=== PATIENT | female | born 1940 | race African-American/Black ===

== ENCOUNTER → 2016-07-06 | Outpatient (CLI) | payer MEDICARE, BC ==
[2016-03-31 10:36] VITALS: BP 109/61
[~2016-07-06] MED LIST: ALPR0.25 PO; AMLO2.5T2 PO; BUSP5TAB PO; CITA20TA9 PO; CYCL10TA2 PO; ESOM40CA PO; FENT1PAT17 TD; FURO-69 PO; GABA-586 PO; HYDR-2762 PO; HYDR30CR TP; LABE200T2 PO; MIRT15TA PO; NITR0.4T SL; ONDA4TAB10 PO; POTA10CA PO; PRAV80TA2 PO; PROAIR HFA8.5 GM IH; SENN8.6T99 PO; TRAZ50TA15 PO; ZOST1940 SQ
--- NOTE | 2016-07-06 12:24 | KCIC ---
PROCEDURE DEXA. HISTORY Postmenopausal screening. COMPARISON January 08, 2011. FINDINGS BMD: (g/cm2) - AP Spine Total (L1-L4): 0.986 - Total left Hip: 0.878 T-Score: - AP Spine Total (L1-L4): -0.6 - Total left Hip: -0.5 Z-Score: - AP Spine Total (L1-L4): 1.2 - Total left Hip: 0.3 Spine bone mineral density has decreased by 1.9 percent from prior. Left hip bone mineral density has decreased by 11.8 percent from prior. World Health Organization criteria for BMD interpretation classify patients as Normal (T-score at or above -1.0), Osteopenic (T-score between -1.0 and -2.5), or Osteoporotic (T-score at or below -2.5). IMPRESSION Normal bone mineral density in the spine and left hip. Electronically signed by: Rufus Morfin MD (Jul 06, 2016 12:22:43)
== END | disposition home or self-care (01) ==
LOC: KCIC DEXA 10:08
PROVIDERS: ATTEND Family Medicine
DX: Z78.0 Asymptomatic menopausal state (principal)
CPT/HCPCS: 77080

== ENCOUNTER 2016-09-12 13:27 | Inpatient (IN) | payer BC, MEDICARE ==
[2016-09-12] VITALS (7 sets, daily range): BP systolic 113–139; BP diastolic 56–67
[~2016-09-12] VITALS: Ht 157.5 cm; Wt 61.2 kg
[~2016-09-12 13:27] MED LIST changes: -POTA10CA PO; +POTASSIUM CHLO10 MEQ PO
[2016-09-12] MEDS ORDERED: PROPOFOL 20 ML IV ONE (13:36)
[2016-09-12] MEDS: VECURONIUM BOLUS 10 MG VIAL. IV ONE ×2 (13:38→18:00)
[2016-09-12] MEDS: PROPOFOL 10 MG/ML (20ML) VIAL. IV ONE ×2 (13:39→18:00)
[2016-09-12] MEDS: CHLORHEXIDINE 0.12% 15 ML MOUTHWASH. MM SCH ×2 (13:47→20:34)
[2016-09-12] MEDS ORDERED: PROPOFOL 50 ML IV ONE ×2 (13:47→16:07)
[2016-09-12] MEDS: PROPOFOL 100 ML IV PRN ×3 (13:47→19:37)
--- NOTE | 2016-09-12 14:00 | RAD ---
Portable AP upright view CXR: Clinical indications: Overdose. ET tube placement.. Comparison: February 05, 2016. Findings: ET tube is in place and the tip is located 4 cm above the level of the shaugfta. NG tube is in place and the tip is seen within the fundus of the stomach. The proximal port is located at the level of the gastric cardia. No acute lung infiltrate or pleural effusion or pulmonary edema or lung mass or pneumothorax is seen. The heart size, pulmonary vasculature, mediastinum and both more are unremarkable. Scoliosis is seen. Impression: No acute radiographic abnormality is seen.
[2016-09-12 14:08] LABS: BILIRUBIN,URINE NEGATIVE (NEG); GLUCOSE,URINE NEGATIVE (NEG); NITRITE,URINE NEGATIVE (NEG); PROTEIN,URINE NEGATIVE (NEG-TRACE); UROBILINOGEN,URINE 0.2 mg/dL (0.2 mg/dL)
[2016-09-12 14:10] LABS: BARBITURATES NEG (NEG); BENZODIAZEPINES POS (NEG); CANNABINOIDS POS (NEG); COCAINE NEG (NEG); METHADONE NEG (NEG); OPIATES POS (NEG); PHENCYCLIDINE NEG (NEG)
[2016-09-12 14:20] LABS: HCO3 ABG 27 mmol/L (21-28); PCO2 ABG 38 mmHg (35-46); PH ABG 7.46 (7.35-7.45); PO2 ABG 116 mmHg (65-108); SAT O2 ABG 98 % (92-99)
[2016-09-12 14:34] LABS: BACTERIA,URINE 0 /HPF (0-FEW); RBC,URINE 0 /HPF (0-2); WBC,URINE 0 /HPF (0-4)
[2016-09-12 15:06] LABS: BASO % 0 % (0-3); EOS % 3 % (0-3); HEMATOCRIT 38.9 % (36.0-47.0); LYMPH # 1.1 x10^3/uL (1.0-4.8); LYMPH % 12 % (24-48); MEAN CORPUSCULAR HEMOGLOBIN 32 pg (25-35); MEAN CORPUSCULAR HGB CONC 33 g/dL (31-37); MEAN CORPUSCULAR VOLUME 96 fL (79-100); MONO % 7 % (0-9); NEUT % 78 % (31-73); PLATELET COUNT 173 x10^3/uL (140-400); RED BLOOD COUNT 4.05 x10^6/uL (3.50-5.40); RED CELL DISTRIBUTION WIDTH 15.3 % (11.5-14.5); WHITE BLOOD COUNT 8.9 x10^3/uL (4.0-11.0)
[2016-09-12 15:28] LABS: FIO2 ABG 40
[2016-09-12 15:34] LABS: CALCIUM 8.8 mg/dL (8.5-10.1); CREATININE 0.7 mg/dL (0.6-1.0); GFR 98.7; POTASSIUM 3.6 mmol/L (3.5-5.1)
[2016-09-12 15:35] LABS: ETHANOL < 10 mg/dL (0-10)
[2016-09-12 15:47] LABS: ALBUMIN 3.4 g/dL (3.4-5.0); TOTAL BILIRUBIN 0.5 mg/dL (0.2-1.0); TOTAL PROTEIN 6.9 g/dL (6.4-8.2)
--- NOTE | 2016-09-12 16:04 | EKG ---
[facility] [address] [place] [address] Test Date: 2016-09-12 Test Time: 13:45:58 Pat Name: KRISTI BARONE Department: Room: Gender: F Dross Skimmer: : 1940 Requested By: PACHECO CRUZ Order Number: [id number] Reading MD: Barbara Cassidy Measurements Intervals [place] Rate: 82 P: -21 HI: 122 QRS: -34 QRSD: 86 T: 31 QT: 366 QTc: 431 Interpretive Statements SINUS RHYTHM LEFT ANTERIOR FASCICULAR BLOCK Electronically Signed On 09-15-2016 21:02:34 CDT by Barbara Cassidy
--- NOTE | 2016-09-12 16:13 | ED.ADGEN ---
Past Medical History Past Medical History: Arthritis, Cancer, High Cholesterol, Hypertension, Other Additional Past Medical Histor: Chronic pain, bowel obstruction, HYPOGLYCEMIA; STAGE 3 KIDNEY DISEASE Past Surgical History: Tubal ligation, Other Additional Past Surgical Histo: Colon resection, EYE SX, R ROTATOR CUFF, ARTHROSCOPY Alcohol Use: Occasionally Drug Use: None Adult General Chief Complaint Chief Complaint: OVERDOSE HPI HPI Patient is a 76 year old -Ni[place] female history of chronic right shoulder pain who presents with altered mental status after being found with number 4, 50 g fentanyl patches stuck to her back and number 1, 50 g fentanyl patch in her mouth. Family found patient obtunded on her bed covered in urine removed patches and called EMS. On EMS arrival, the patient had agonal respirations approximate 5/m. A milligram of Narcan was given the patient was more alert with a GCS of 12. Patient alert, tremulous with incoherent speech on ED arrival. She is not cooperative with exam. Patient was noted to have fever of 100.4. History limited by the patient's clinical condition. Additional history obtained from EMS and patient's family. Review of Systems Review of Systems Review symptoms as per history of present illness. All other review symptoms are negative. Current Medications Current Medications Current Medications Medications (Trade) Dose Ordered Sig/Julia Start Time Stop Time Status Last Admin Dose Admin Chlorhexidine Gluconate (Peridex) 15 ml BID 09/12/16 14:00 Propofol 100 ml @ 0 mls/hr CONT PRN 09/12/16 14:00 09/12/16 13:47 2.3 MLS/HR Allergies Allergies Allergies Coded Allergies Type Severity Reaction Last Updated Verified No Known Drug Allergies 01/04/14 No Physical Exam Physical Exam Constitutional: Tremulous, diaphoretic and confused. HENT: Normocephalic, atraumatic, bilateral external ears normal, oropharynx moist, nose, nl. Eyes: PERRL. Neck: Normal range of motion, no tenderness. Cardiovascular:Heart rate regular rhythm, no murmur. Lungs & Thorax: Bilateral breath sounds clear to auscultation. Abdomen: Bowel sounds normal, soft, no tendernes. Skin: Spells, no remaining fentanyl patches identified. Back: No tenderness. Extremities: No tenderness. Neurologic: GCS of 12, is all 4 extremities.moves all four extremities. Psychologic: Affect normal, judgement normal, mood normal. Current Patient Data Vital Signs Vital Signs Date Time Temp Pulse Resp B/P (MAP) Pulse Ox O2 Delivery O2 Flow Rate FiO2 09/12/16 15:35 89 151/68 (95) 100 Ventilator 09/12/16 15:30 17 09/12/16 13:28 100.4 100.4 Lab Values Laboratory Tests Test 09/12/16 13:42 09/12/16 13:45 09/12/16 14:35 O2 Saturation 98 % (92-99) Arterial Blood pH 7.46 (7.35-7.45) H Arterial Blood pCO2 at Patient Temp 38 mmHg (35-46) Arterial Blood pO2 at Patient Temp 116 mmHg (65-108) H Arterial Blood HCO3 27 mmol/L (21-28) Arterial Blood Base Excess 3 mmol/L (-3-3) FiO2 40 Urine Collection Type Unknown Urine Color Yellow Urine Clarity Clear Urine pH 6.0 Urine Specific [place] 1.020 Urine Protein Negative mg/dL (NEG-TRACE) Urine Glucose (UA) Negative mg/dL (NEG) Urine Ketones (Stick) Trace mg/dL (NEG) Urine Blood Negative (NEG) Urine Nitrite Negative (NEG) Urine Bilirubin Negative (NEG) Urine Urobilinogen Dipstick 0.2 mg/dL (0.2 mg/dL) Urine Leukocyte Esterase Negative (NEG) Urine RBC 0 /HPF (0-2) Urine WBC 0 /HPF (0-4) Urine Squamous Epithelial Cells None /LPF Urine Bacteria 0 /HPF (0-FEW) Urine Mucus Slight /LPF Urine Opiates Screen Pos (NEG) Urine Methadone Screen Neg (NEG) Urine Barbiturates Neg (NEG) Urine Phencyclidine Screen Neg (NEG) Urine Amphetamine/Methamphetamine Neg (NEG) Urine Benzodiazepines Screen Pos (NEG) Urine Cocaine Screen Neg (NEG) Urine Cannabinoids Screen Pos (NEG) Urine Ethyl Alcohol Neg (NEG) White Blood Count 8.9 x10^3/uL (4.0-11.0) Red Blood Count 4.05 x10^6/uL (3.50-5.40) Hemoglobin 13.0 g/dL (12.0-15.5) Hematocrit 38.9 % (36.0-47.0) Mean Corpuscular Volume 96 fL (79-100) Mean Corpuscular Hemoglobin 32 pg (25-35) Mean Corpuscular Hemoglobin Concent 33 g/dL (31-37) Red Cell Distribution Width 15.3 % (11.5-14.5) H Platelet Count 173 x10^3/uL (140-400) Neutrophils (%) (Auto) 78 % (31-73) H Lymphocytes (%) (Auto) 12 % (24-48) L Monocytes (%) (Auto) 7 % (0-9) Eosinophils (%) (Auto) 3 % (0-3) Basophils (%) (Auto) 0 % (0-3) Neutrophils # (Auto) 6.9 x10^3uL (1.8-7.7) Lymphocytes # (Auto) 1.1 x10^3/uL (1.0-4.8) Monocytes # (Auto) 0.6 x10^3/uL (0.0-1.1) Eosinophils # (Auto) 0.2 x10^3/uL (0.0-0.7) Basophils # (Auto) 0.0 x10^3/uL (0.0-0.2) Sodium Level 142 mmol/L (136-145) Potassium Level 3.6 mmol/L (3.5-5.1) Chloride Level 103 mmol/L (98-107) Carbon Dioxide Level 29 mmol/L (21-32) Anion Gap 10 (6-14) Blood Urea Nitrogen 13 mg/dL (7-20) Creatinine 0.7 mg/dL (0.6-1.0) Estimated GFR (Cockcroft-Gault) 98.7 BUN/Creatinine Ratio 19 (6-20) Glucose Level 101 mg/dL (70-99) H Calcium Level 8.8 mg/dL (8.5-10.1) Total Bilirubin 0.5 mg/dL (0.2-1.0) Aspartate Amino Transferase (AST) 28 U/L (15-37) Alanine Aminotransferase (ALT) 18 U/L (14-59) Alkaline Phosphatase 83 U/L (46-116) QK-Xis-P-Type Natriuretic Peptide 636 pg/mL (0-449) H Total Protein 6.9 g/dL (6.4-8.2) Albumin 3.4 g/dL (3.4-5.0) Albumin/Globulin Ratio 1.0 (1.0-1.7) Salicylates Level < 2.8 mg/dL (2.8-20.0) L Salicylate Last Dose Date Unknown Salicylate Last Dose Time Unknown Acetaminophen Level < 2 mcg/ml (10-30) L Acetaminophen Last Dose Date Unknown Acetaminophen Last Dose Time Unknown Ethyl Alcohol Level < 10 mg/dL (0-10) Laboratory Tests 09/12/16 14:35 Laboratory Tests 09/12/16 14:35 EKG EKG [EKG: Normal sinus rhythm, no acute ST-T wave changes, QTC 431, ventricular rate 82] Radiology/Procedures Radiology/Procedures [Chest x-ray: Endotracheal tube 4 cm above shagufta.] Course & Med Decision Making Course & Med Decision Making Pertinent Labs and Imaging studies reviewed. (See chart for details) [ with acute respiratory failure secondary to narcotic overdose with secondary acute narcotic withdrawal secondary to Narcan therapy. Patient intubated after ED arrival as the patient was either a good candidate for sedation or further Narcan therapy. Patient intubated without difficulty. Dr. Conrad on-call for school service in the ED for admission and orders. Brian Disclaimer Dragon Disclaimer This electronic medical record was generated, in whole or in part, using a voice recognition dictation system. PACHECO CRUZ DO Sep 12, 2016 16:13
[2016-09-12] MEDS ORDERED: ONDANSETRON PF 4 MG/2 ML VIAL. IV PRN (16:15)
--- NOTE | 2016-09-12 16:28 | PDOC1 ---
History and Physical Date of Admission Date of Admission 09/12/16 Identification/Chief Complaint Chief Complaint AMS Problems: Source Source: Caregiver, Chart review History of Present Illness History of Present Illness HPI HPI Patient is a 76 year old -[place] female history of chronic right shoulder pain, back pain, abd pain, was sent by EMS for AMS today. Pt is currently intubated, all history comes from daughter and ERP. Pt lives with her , doing ok till today , was found by her daughter who came to visit her at home with confusion. Pt was staring straight, not talking or answer questions, shallow breathing. She was also found urinary incontinence for which [facility] and was told to fu uro next week. Pt was found 4 fentanyl patch on her back (50mcg), one in her mouth, she also takes lortab, xanax, and urine tox is also + for marijuana. as per ERP, A milligram of Narcan was given the patient was more alert with a GCS of 12. Patient alert, tremulous with incoherent speech on ED arrival. She is not cooperative with exam. Patient was noted to have fever of 100.4. and then she was intubated. pt has history of multiple abd sx, as per daughter , since then chronic pain issues. Past Medical History Cardiovascular: CHF, HTN CENTRAL NERVOUS SYSTEM: Dementia Psych: Anxiety, Depression Renal/: No pertinent hx Endocrine: No pertinent hx Past Surgical History Past Surgical History : Colon resection, EYE SX, R ROTATOR CUFF, ARTHROSCOPY Family History Family History: Hypertension Social History Smoke: Quit ALCOHOL: occassional Current Medications Current Medications Current Medications Medications (Trade) Dose Ordered Sig/Julia Start Time Stop Time Status Last Admin Dose Admin Chlorhexidine Gluconate (Peridex) 15 ml BID 09/12/16 14:00 Propofol 50 ml @ As Directed STK-MED ONCE 09/12/16 16:07 09/12/16 16:08 DC Allergies Allergies Allergies Coded Allergies Type Severity Reaction Last Updated Verified No Known Drug Allergies 01/04/14 No ROS Review of System CONSTITUTIONAL: No fever or chills EYES: No recent changes SKIN: No rash or itching CARDIOVASCULAR: No chest pain, syncope, palpitations, or edema RESPIRATORY: No SOB or cough GASTROINTESTINAL: No nausea, vomiting or abdominal pain NEUROLOGICAL: No headaches or weakness ENDOCRINE: No cold or heat intolerance GENITOURINARY: No urgency or frequency of urination MUSCULOSKELETAL: No back pain or joint pain LYMPHATICS: No enlarged lymph nodes PSYCHIATRIC: No anxiety or depression Physical Exam Physical Exam GEN.: intubated. HEENT: Head is normocephalic, atraumatic NECK: Supple. LUNGS: bl coarse bs. HEART: RRR, S1, S2 present. Peripheral pulses intact ABDOMEN: Soft, nontender. Positive bowel sounds. EXTREMITIES: Without any cyanosis. ble lower ext 1+ edema NEUROLOGIC: Normal speech, normal tone PSYCHIATRIC: Normal affect, normal mood. SKIN: No ulcerations Vitals Vitals Vital Signs Date Time Temp Pulse Resp B/P (MAP) Pulse Ox O2 Delivery O2 Flow Rate FiO2 09/12/16 16:02 100.1 100.1 09/12/16 15:35 89 151/68 (95) 100 Ventilator 09/12/16 15:30 17 Labs Labs Laboratory Tests Test 09/12/16 13:42 09/12/16 13:45 09/12/16 14:35 O2 Saturation 98 % (92-99) Arterial Blood pH 7.46 (7.35-7.45) Arterial Blood pCO2 at Patient Temp 38 mmHg (35-46) Arterial Blood pO2 at Patient Temp 116 mmHg (65-108) Arterial Blood HCO3 27 mmol/L (21-28) Arterial Blood Base Excess 3 mmol/L (-3-3) FiO2 40 Urine Collection Type Unknown Urine Color Yellow Urine Clarity Clear Urine pH 6.0 Urine Specific [place] 1.020 Urine Protein Negative mg/dL (NEG-TRACE) Urine Glucose (UA) Negative mg/dL (NEG) Urine Ketones (Stick) Trace mg/dL (NEG) Urine Blood Negative (NEG) Urine Nitrite Negative (NEG) Urine Bilirubin Negative (NEG) Urine Urobilinogen Dipstick 0.2 mg/dL (0.2 mg/dL) Urine Leukocyte Esterase Negative (NEG) Urine RBC 0 /HPF (0-2) Urine WBC 0 /HPF (0-4) Urine Squamous Epithelial Cells None /LPF Urine Bacteria 0 /HPF (0-FEW) Urine Mucus Slight /LPF Urine Opiates Screen Pos (NEG) Urine Methadone Screen Neg (NEG) Urine Barbiturates Neg (NEG) Urine Phencyclidine Screen Neg (NEG) Urine Amphetamine/Methamphetamine Neg (NEG) Urine Benzodiazepines Screen Pos (NEG) Urine Cocaine Screen Neg (NEG) Urine Cannabinoids Screen Pos (NEG) Urine Ethyl Alcohol Neg (NEG) White Blood Count 8.9 x10^3/uL (4.0-11.0) Red Blood Count 4.05 x10^6/uL (3.50-5.40) Hemoglobin 13.0 g/dL (12.0-15.5) Hematocrit 38.9 % (36.0-47.0) Mean Corpuscular Volume 96 fL (79-100) Mean Corpuscular Hemoglobin 32 pg (25-35) Mean Corpuscular Hemoglobin Concent 33 g/dL (31-37) Red Cell Distribution Width 15.3 % (11.5-14.5) Platelet Count 173 x10^3/uL (140-400) Neutrophils (%) (Auto) 78 % (31-73) Lymphocytes (%) (Auto) 12 % (24-48) Monocytes (%) (Auto) 7 % (0-9) Eosinophils (%) (Auto) 3 % (0-3) Basophils (%) (Auto) 0 % (0-3) Neutrophils # (Auto) 6.9 x10^3uL (1.8-7.7) Lymphocytes # (Auto) 1.1 x10^3/uL (1.0-4.8) Monocytes # (Auto) 0.6 x10^3/uL (0.0-1.1) Eosinophils # (Auto) 0.2 x10^3/uL (0.0-0.7) Basophils # (Auto) 0.0 x10^3/uL (0.0-0.2) Sodium Level 142 mmol/L (136-145) Potassium Level 3.6 mmol/L (3.5-5.1) Chloride Level 103 mmol/L (98-107) Carbon Dioxide Level 29 mmol/L (21-32) Anion Gap 10 (6-14) Blood Urea Nitrogen 13 mg/dL (7-20) Creatinine 0.7 mg/dL (0.6-1.0) Estimated GFR (Cockcroft-Gault) 98.7 BUN/Creatinine Ratio 19 (6-20) Glucose Level 101 mg/dL (70-99) Calcium Level 8.8 mg/dL (8.5-10.1) Total Bilirubin 0.5 mg/dL (0.2-1.0) Aspartate Amino Transf (AST/SGOT) 28 U/L (15-37) Alanine Aminotransferase (ALT/SGPT) 18 U/L (14-59) Alkaline Phosphatase 83 U/L (46-116) AG-Hpu-T-Type Natriuretic Peptide 636 pg/mL (0-449) Total Protein 6.9 g/dL (6.4-8.2) Albumin 3.4 g/dL (3.4-5.0) Albumin/Globulin Ratio 1.0 (1.0-1.7) Salicylates Level < 2.8 mg/dL (2.8-20.0) Salicylate Last Dose Date Unknown Salicylate Last Dose Time Unknown Acetaminophen Level < 2 mcg/ml (10-30) Acetaminophen Last Dose Date Unknown Acetaminophen Last Dose Time Unknown Ethyl Alcohol Level < 10 mg/dL (0-10) Laboratory Tests Test 09/12/16 13:42 09/12/16 13:45 09/12/16 14:35 O2 Saturation 98 % (92-99) Arterial Blood pH 7.46 (7.35-7.45) Arterial Blood pCO2 at Patient Temp 38 mmHg (35-46) Arterial Blood pO2 at Patient Temp 116 mmHg (65-108) Arterial Blood HCO3 27 mmol/L (21-28) Arterial Blood Base Excess 3 mmol/L (-3-3) FiO2 40 Urine Collection Type Unknown Urine Color Yellow Urine Clarity Clear Urine pH 6.0 Urine Specific [place] 1.020 Urine Protein Negative mg/dL (NEG-TRACE) Urine Glucose (UA) Negative mg/dL (NEG) Urine Ketones (Stick) Trace mg/dL (NEG) Urine Blood Negative (NEG) Urine Nitrite Negative (NEG) Urine Bilirubin Negative (NEG) Urine Urobilinogen Dipstick 0.2 mg/dL (0.2 mg/dL) Urine Leukocyte Esterase Negative (NEG) Urine RBC 0 /HPF (0-2) Urine WBC 0 /HPF (0-4) Urine Squamous Epithelial Cells None /LPF Urine Bacteria 0 /HPF (0-FEW) Urine Mucus Slight /LPF Urine Opiates Screen Pos (NEG) Urine Methadone Screen Neg (NEG) Urine Barbiturates Neg (NEG) Urine Phencyclidine Screen Neg (NEG) Urine Amphetamine/Methamphetamine Neg (NEG) Urine Benzodiazepines Screen Pos (NEG) Urine Cocaine Screen Neg (NEG) Urine Cannabinoids Screen Pos (NEG) Urine Ethyl Alcohol Neg (NEG) White Blood Count 8.9 x10^3/uL (4.0-11.0) Red Blood Count 4.05 x10^6/uL (3.50-5.40) Hemoglobin 13.0 g/dL (12.0-15.5) Hematocrit 38.9 % (36.0-47.0) Mean Corpuscular Volume 96 fL (79-100) Mean Corpuscular Hemoglobin 32 pg (25-35) Mean Corpuscular Hemoglobin Concent 33 g/dL (31-37) Red Cell Distribution Width 15.3 % (11.5-14.5) Platelet Count 173 x10^3/uL (140-400) Neutrophils (%) (Auto) 78 % (31-73) Lymphocytes (%) (Auto) 12 % (24-48) Monocytes (%) (Auto) 7 % (0-9) Eosinophils (%) (Auto) 3 % (0-3) Basophils (%) (Auto) 0 % (0-3) Neutrophils # (Auto) 6.9 x10^3uL (1.8-7.7) Lymphocytes # (Auto) 1.1 x10^3/uL (1.0-4.8) Monocytes # (Auto) 0.6 x10^3/uL (0.0-1.1) Eosinophils # (Auto) 0.2 x10^3/uL (0.0-0.7) Basophils # (Auto) 0.0 x10^3/uL (0.0-0.2) Sodium Level 142 mmol/L (136-145) Potassium Level 3.6 mmol/L (3.5-5.1) Chloride Level 103 mmol/L (98-107) Carbon Dioxide Level 29 mmol/L (21-32) Anion Gap 10 (6-14) Blood Urea Nitrogen 13 mg/dL (7-20) Creatinine 0.7 mg/dL (0.6-1.0) Estimated GFR (Cockcroft-Gault) 98.7 BUN/Creatinine Ratio 19 (6-20) Glucose Level 101 mg/dL (70-99) Calcium Level 8.8 mg/dL (8.5-10.1) Total Bilirubin 0.5 mg/dL (0.2-1.0) Aspartate Amino Transf (AST/SGOT) 28 U/L (15-37) Alanine Aminotransferase (ALT/SGPT) 18 U/L (14-59) Alkaline Phosphatase 83 U/L (46-116) AD-Cav-Y-Type Natriuretic Peptide 636 pg/mL (0-449) Total Protein 6.9 g/dL (6.4-8.2) Albumin 3.4 g/dL (3.4-5.0) Albumin/Globulin Ratio 1.0 (1.0-1.7) Salicylates Level < 2.8 mg/dL (2.8-20.0) Salicylate Last Dose Date Unknown Salicylate Last Dose Time Unknown Acetaminophen Level < 2 mcg/ml (10-30) Acetaminophen Last Dose Date Unknown Acetaminophen Last Dose Time Unknown Ethyl Alcohol Level < 10 mg/dL (0-10) VTE Prophylaxis Ordered VTE Prophylaxis Devices: Yes VTE Pharmacological Prophylaxi: Yes Assessment/Plan Assessment/Plan AMS, toxic encephalopathy with pain meds overdose likely acute resp failure with AMS, pain meds overdose chronic shoulder , back and abd pain on multiple pain meds CHF, no details mild dementia htn hld OA h/o uterus/cervical Ca post sx drug abuse with marijuana recent urinary incontinence SIRS plan: admit to ICU intubated ,sedated hold pain meds for now cont some po meds through OGT DVT PPX ivf npo would like to order gi ppx, but this hospital dosenot allow iv protonix, and there is no iv pepcid for me to order. consider po OGT tmr pulm consult monitor T, if cont gets high, consider infection consider uro consult after extubation critical care 40min VANESSA BOWSER MD Sep 12, 2016 16:28
[2016-09-12] MEDS ORDERED: DOCUSATE SODIUM 100 MG CAPSULE. PO PRN (16:30)
[2016-09-12] MEDS ORDERED: traMADol 50 MG TABLET PO PRN (16:30)
[2016-09-12] MEDS ORDERED: ACETAMINOPHEN 325 MG TABLET. PO PRN ×2 (16:30)
[2016-09-12] MEDS ORDERED: POTASSIUM CL 20MEQ D5-0.45NACL 1,000 ML IV ONE (16:30)
--- NOTE | 2016-09-12 16:30 | ACF ---
Admission Forms Criteria DRUG INGESTION OR OVERDOSE Clinical Indications for Admission to Inpatient Care ( Place 'X' for any and all applicable criteria): Admission is indicated for severe toxicity as indicated by ANY ONE of the following(1)(2)(3)(4)(5)(6): [X ]I. Inpatient admission required rather than observation care (Also use Drug Ingestion or Overdose: Observation Care guideline as appropriate) because of ANY ONE of the following: [X ]a) Altered mental status that is severe or persistent [ ]b) Clinical finding (eg, metabolic acidosis, hypoglycemia, bradycardia) that is severe or persistent [ ]c) Toxic drug level that is persistent [ ]d) Psychiatric risk status not acceptable for outpatient management [ ]e) Continuous intravenous infusion of anticoagulation, platelet inhibitor, vasoactive, or antiarrhythmic medication (15)(16) [ ]f) Other condition, treatment or monitoring requiring inpatient admission [X ]II. Respiratory abnormalities [ ]III. Specific finding indicating severe and likely prolonged drug toxicity [ ]IV. Hemodynamic instability [ ]V. Dangerous arrhythmia [ ]. Hypertension requiring inpatient treatment Extended stay beyond goal length of stay may be needed for (4): [ ]a) Neurologic or respiratory compromise [ ]b) Hemodynamic instability [ ]c) Persistent toxic drug levels (25) [ ]d) Severe drug toxicities or complications [ ]e) Ongoing antidote treatment (eg, acetaminophen overdose)(5) [ ]f) Older patients(65 years or older) The original [facility] content created by [employer] has been revised. The portions of the content which have been revised are identified through the use of italic text or in bold, and [email or web address] has neither reviewed nor approved the modified material. All other unmodified content is copyright [email or web address]. Please see references footnoted in the original [facility] edition 2016 Admission Criteria Met?: Yes PHAN POST Sep 12, 2016 16:30
--- NOTE | 2016-09-12 17:51 | PDOC2 ---
CONSULT Date of Consult Date of Consult DATE: 09/12/16 TIME: 17:44 Reason for Consult Reason for Consult: VENTILATOR MANAGEMENT IN PT WITH DRUG OVERDOSE Referring Physician Referring Physician: DR BOWSER Identification/Chief Complaint Chief Complaint NONE Problems: Source Source: Chart review History of Present Illness Reason for Visit: PT PRESENTED WITH AMS FOUND TO HAVE AN OVERDOSE OF FENTANYL, LORATBA AND MARIJUANA PT WITH CHRONIC PAIN FEVER IN ER INTUBATED I WAS ASKED TO MANAGE VENT Past Medical History Cardiovascular: CHF, HTN CENTRAL NERVOUS SYSTEM: Dementia Psych: Anxiety, Depression Renal/: No pertinent hx Endocrine: No pertinent hx Family History Family History: Hypertension Social History Quit ALCOHOL: occassional Current Medications Current Medications Current Medications Propofol 20 ml @ As Directed STK-MED ONCE IV ; Start 09/12/16 at 13:36; Stop at 13:37; Status DC Propofol 50 ml @ As Directed STK-MED ONCE IV ; Start 09/12/16 at 13:47; Stop at 13:48; Status DC Propofol 100 ml @ 0 mls/hr CONT PRN IV PER PROTOCOL Last administered on t 13:47; Start 09/12/16 at 14:00 Chlorhexidine Gluconate (Peridex) 15 ml BID MM ; Start 09/12/16 at 14:00 Propofol 50 ml @ As Directed STK-MED ONCE IV ; Start 09/12/16 at 16:07; Stop at 16:08; Status DC Amlodipine Besylate (Norvasc) 2.5 mg DAILY PO ; Start 09/13/16 at 09:00 Buspirone HCl (Buspar) 5 mg DAILY PO ; Start 09/13/16 at 09:00 Citalopram Hydrobromide (CeleXA) 20 mg DAILY PO ; Start 09/13/16 at 09:00 Furosemide (Lasix) 20 mg BID92 PO ; Start 09/13/16 at 09:00 Non-Formulary Medication 40 mg DAILY PO ; Start 09/13/16 at 09:00; Stop at 09:00; Status DC Potassium Chloride (Klor-Con) 10 meq DAILYWBKFT PO ; Start 09/13/16 at 08:00 Ondansetron HCl (Zofran) 4 mg PRN Q8HRS PRN IV NAUSEA/VOMITING; Start 09/12/16 at 16:15; Stop 09/13/16 at 16:14 Acetaminophen (Tylenol) 650 mg PRN Q6HRS PRN PO FEVER; Start 09/12/16 at 16:30 ; Stop 09/12/16 at 16:30; Status DC Ondansetron HCl (Zofran) 4 mg PRN Q6HRS PRN IV NAUSEA/VOMITING; Start 09/12/16 at 16:30 Morphine Sulfate 2 mg PRN Q2HR PRN IV PAIN; Start 09/12/16 at 16:30 Tramadol HCl (Ultram) 50 mg PRN Q6HRS PRN PO PAIN; Start 09/12/16 at 16:30 Hydralazine HCl (Apresoline) 10 mg PRN Q4HRS PRN IVP ELEVATED BP, SEE COMMENTS ; Start 09/12/16 at 16:30 Docusate Sodium (Colace) 100 mg PRN DAILY PRN PO CONSTIPATION; Start 09/12/16 at 16:30 Enoxaparin Sodium (Lovenox 40mg Syringe) 40 mg DAILY SQ ; Start 09/13/16 at 09: 00 Potassium Chloride/Dextrose/ Sod Cl 1,000 ml @ 75 mls/hr 1X ONCE IV ; Start at 16:30; Stop 09/13/16 at 05:49 Acetaminophen (Tylenol) 650 mg PRN Q6HRS PRN PO FEVER; Start 09/12/16 at 16:30 Active Scripts Active Zofran Odt (Ondansetron) 4 Mg Tab.rapdis 4 Mg PO Q8HRS PRN Reported Norvasc (Amlodipine Besylate) 2.5 Mg Tablet 2.5 Mg PO DAILY Potassium Chloride 10 Meq Capsule.er 10 Meq PO DAILY Lasix (Furosemide) 20 Mg Tablet 20 Mg PO BID Xanax (Alprazolam) 0.25 Mg Tablet 0.25 Mg PO PRN Q6HRS PRN Senokot (Sennosides) 8.6 Mg Tablet 8.6 Mg PO DAILY Celexa (Citalopram Hydrobromide) 20 Mg Tablet 20 Mg PO DAILY Trazodone Hcl 50 Mg Tablet 50 Mg PO HS Nexium Capsule (Esomeprazole Magnesium) 40 Mg Capsule.dr 40 Mg PO DAILY FENTANYL 50mcg/hr (Fentanyl) 1 Each Patch.td72 1 Each TD Q3DAYS Zostavax Vial (Zoster Vaccine Live/Pf) 19,400 Unit Vial 19,400 Unit SQ Pravastatin Sodium 80 Mg Tablet 80 Mg PO DAILY Hydroquinone (Hydroquinone Microspheres) 30 Gm Crm.er..g. 30 Gm TP DAILY Hydrocodone-Apap 7.5-325 (Hydrocodone Bit/Acetaminophen) 1 Each Tablet 1 Each PO PRN Q6HRS PRN Buspirone Hcl 5 Mg Tablet 5 Mg PO DAILY Allergies Allergies: Coded Allergies: No Known Drug Allergies (Unverified , 01/04/14) ROS Review of System UNABLE TO REVIEW SEC TO PT CONDITION Vitals VITALS Vital Signs Date Time Temp Pulse Resp B/P (MAP) Pulse Ox O2 Delivery O2 Flow Rate FiO2 09/12/16 17:08 100 Ventilator 09/12/16 17:05 61 16 141/69 (93) 09/12/16 16:02 100.1 100.1 Labs Labs Laboratory Tests Test 09/12/16 13:42 09/12/16 13:45 09/12/16 14:35 O2 Saturation 98 % (92-99) Arterial Blood pH 7.46 (7.35-7.45) Arterial Blood pCO2 at Patient Temp 38 mmHg (35-46) Arterial Blood pO2 at Patient Temp 116 mmHg (65-108) Arterial Blood HCO3 27 mmol/L (21-28) Arterial Blood Base Excess 3 mmol/L (-3-3) FiO2 40 Urine Collection Type Unknown Urine Color Yellow Urine Clarity Clear Urine pH 6.0 Urine Specific Fisher 1.020 Urine Protein Negative mg/dL (NEG-TRACE) Urine Glucose (UA) Negative mg/dL (NEG) Urine Ketones (Stick) Trace mg/dL (NEG) Urine Blood Negative (NEG) Urine Nitrite Negative (NEG) Urine Bilirubin Negative (NEG) Urine Urobilinogen Dipstick 0.2 mg/dL (0.2 mg/dL) Urine Leukocyte Esterase Negative (NEG) Urine RBC 0 /HPF (0-2) Urine WBC 0 /HPF (0-4) Urine Squamous Epithelial Cells None /LPF Urine Bacteria 0 /HPF (0-FEW) Urine Mucus Slight /LPF Urine Opiates Screen Pos (NEG) Urine Methadone Screen Neg (NEG) Urine Barbiturates Neg (NEG) Urine Phencyclidine Screen Neg (NEG) Urine Amphetamine/Methamphetamine Neg (NEG) Urine Benzodiazepines Screen Pos (NEG) Urine Cocaine Screen Neg (NEG) Urine Cannabinoids Screen Pos (NEG) Urine Ethyl Alcohol Neg (NEG) White Blood Count 8.9 x10^3/uL (4.0-11.0) Red Blood Count 4.05 x10^6/uL (3.50-5.40) Hemoglobin 13.0 g/dL (12.0-15.5) Hematocrit 38.9 % (36.0-47.0) Mean Corpuscular Volume 96 fL (79-100) Mean Corpuscular Hemoglobin 32 pg (25-35) Mean Corpuscular Hemoglobin Concent 33 g/dL (31-37) Red Cell Distribution Width 15.3 % (11.5-14.5) Platelet Count 173 x10^3/uL (140-400) Neutrophils (%) (Auto) 78 % (31-73) Lymphocytes (%) (Auto) 12 % (24-48) Monocytes (%) (Auto) 7 % (0-9) Eosinophils (%) (Auto) 3 % (0-3) Basophils (%) (Auto) 0 % (0-3) Neutrophils # (Auto) 6.9 x10^3uL (1.8-7.7) Lymphocytes # (Auto) 1.1 x10^3/uL (1.0-4.8) Monocytes # (Auto) 0.6 x10^3/uL (0.0-1.1) Eosinophils # (Auto) 0.2 x10^3/uL (0.0-0.7) Basophils # (Auto) 0.0 x10^3/uL (0.0-0.2) Sodium Level 142 mmol/L (136-145) Potassium Level 3.6 mmol/L (3.5-5.1) Chloride Level 103 mmol/L (98-107) Carbon Dioxide Level 29 mmol/L (21-32) Anion Gap 10 (6-14) Blood Urea Nitrogen 13 mg/dL (7-20) Creatinine 0.7 mg/dL (0.6-1.0) Estimated GFR (Cockcroft-Gault) 98.7 BUN/Creatinine Ratio 19 (6-20) Glucose Level 101 mg/dL (70-99) Calcium Level 8.8 mg/dL (8.5-10.1) Total Bilirubin 0.5 mg/dL (0.2-1.0) Aspartate Amino Transf (AST/SGOT) 28 U/L (15-37) Alanine Aminotransferase (ALT/SGPT) 18 U/L (14-59) Alkaline Phosphatase 83 U/L (46-116) Troponin I Quantitative 0.086 ng/mL (0.000-0.055) OQ-Hff-L-Type Natriuretic Peptide 636 pg/mL (0-449) Total Protein 6.9 g/dL (6.4-8.2) Albumin 3.4 g/dL (3.4-5.0) Albumin/Globulin Ratio 1.0 (1.0-1.7) Salicylates Level < 2.8 mg/dL (2.8-20.0) Salicylate Last Dose Date Unknown Salicylate Last Dose Time Unknown Acetaminophen Level < 2 mcg/ml (10-30) Acetaminophen Last Dose Date Unknown Acetaminophen Last Dose Time Unknown Ethyl Alcohol Level < 10 mg/dL (0-10) Laboratory Tests Test 09/12/16 13:42 09/12/16 13:45 09/12/16 14:35 O2 Saturation 98 % (92-99) Arterial Blood pH 7.46 (7.35-7.45) Arterial Blood pCO2 at Patient Temp 38 mmHg (35-46) Arterial Blood pO2 at Patient Temp 116 mmHg (65-108) Arterial Blood HCO3 27 mmol/L (21-28) Arterial Blood Base Excess 3 mmol/L (-3-3) FiO2 40 Urine Collection Type Unknown Urine Color Yellow Urine Clarity Clear Urine pH 6.0 Urine Specific Fisher 1.020 Urine Protein Negative mg/dL (NEG-TRACE) Urine Glucose (UA) Negative mg/dL (NEG) Urine Ketones (Stick) Trace mg/dL (NEG) Urine Blood Negative (NEG) Urine Nitrite Negative (NEG) Urine Bilirubin Negative (NEG) Urine Urobilinogen Dipstick 0.2 mg/dL (0.2 mg/dL) Urine Leukocyte Esterase Negative (NEG) Urine RBC 0 /HPF (0-2) Urine WBC 0 /HPF (0-4) Urine Squamous Epithelial Cells None /LPF Urine Bacteria 0 /HPF (0-FEW) Urine Mucus Slight /LPF Urine Opiates Screen Pos (NEG) Urine Methadone Screen Neg (NEG) Urine Barbiturates Neg (NEG) Urine Phencyclidine Screen Neg (NEG) Urine Amphetamine/Methamphetamine Neg (NEG) Urine Benzodiazepines Screen Pos (NEG) Urine Cocaine Screen Neg (NEG) Urine Cannabinoids Screen Pos (NEG) Urine Ethyl Alcohol Neg (NEG) White Blood Count 8.9 x10^3/uL (4.0-11.0) Red Blood Count 4.05 x10^6/uL (3.50-5.40) Hemoglobin 13.0 g/dL (12.0-15.5) Hematocrit 38.9 % (36.0-47.0) Mean Corpuscular Volume 96 fL (79-100) Mean Corpuscular Hemoglobin 32 pg (25-35) Mean Corpuscular Hemoglobin Concent 33 g/dL (31-37) Red Cell Distribution Width 15.3 % (11.5-14.5) Platelet Count 173 x10^3/uL (140-400) Neutrophils (%) (Auto) 78 % (31-73) Lymphocytes (%) (Auto) 12 % (24-48) Monocytes (%) (Auto) 7 % (0-9) Eosinophils (%) (Auto) 3 % (0-3) Basophils (%) (Auto) 0 % (0-3) Neutrophils # (Auto) 6.9 x10^3uL (1.8-7.7) Lymphocytes # (Auto) 1.1 x10^3/uL (1.0-4.8) Monocytes # (Auto) 0.6 x10^3/uL (0.0-1.1) Eosinophils # (Auto) 0.2 x10^3/uL (0.0-0.7) Basophils # (Auto) 0.0 x10^3/uL (0.0-0.2) Sodium Level 142 mmol/L (136-145) Potassium Level 3.6 mmol/L (3.5-5.1) Chloride Level 103 mmol/L (98-107) Carbon Dioxide Level 29 mmol/L (21-32) Anion Gap 10 (6-14) Blood Urea Nitrogen 13 mg/dL (7-20) Creatinine 0.7 mg/dL (0.6-1.0) Estimated GFR (Cockcroft-Gault) 98.7 BUN/Creatinine Ratio 19 (6-20) Glucose Level 101 mg/dL (70-99) Calcium Level 8.8 mg/dL (8.5-10.1) Total Bilirubin 0.5 mg/dL (0.2-1.0) Aspartate Amino Transf (AST/SGOT) 28 U/L (15-37) Alanine Aminotransferase (ALT/SGPT) 18 U/L (14-59) Alkaline Phosphatase 83 U/L (46-116) Troponin I Quantitative 0.086 ng/mL (0.000-0.055) YC-Eqm-J-Type Natriuretic Peptide 636 pg/mL (0-449) Total Protein 6.9 g/dL (6.4-8.2) Albumin 3.4 g/dL (3.4-5.0) Albumin/Globulin Ratio 1.0 (1.0-1.7) Salicylates Level < 2.8 mg/dL (2.8-20.0) Salicylate Last Dose Date Unknown Salicylate Last Dose Time Unknown Acetaminophen Level < 2 mcg/ml (10-30) Acetaminophen Last Dose Date Unknown Acetaminophen Last Dose Time Unknown Ethyl Alcohol Level < 10 mg/dL (0-10) Assessment/Plan Assessment/Plan ACUTE RESP FAILURE SEC TO OD CHRONIC PAIN SYNDROME TOXIC ENCEPHALOPATHY POA COPD FEVER COULD BE RELATED TO OD CXR IS CLEAR PLAN SUPPORT OVERNIGHT IV FLUIDS HEMODYNAMICALLY STABLE SHOULD BE ABLE TO EXTUBATE IN AM THANKS CCT 35 MIN SENAIT JUSTIN MD Sep 12, 2016 17:51
[2016-09-12] MEDS: FAMOTIDINE 20 MG/2 ML VIAL IVP SCH (20:31)
[2016-09-13] VITALS (27 sets, daily range): BP systolic 126–188; BP diastolic 56–100
[2016-09-13] MEDS: PROPOFOL 100 ML IV PRN ×2 (00:40→07:31)
[2016-09-13] MEDS ORDERED: POTASSIUM CHLORIDE 10 MEQ TABLET.ER. PO SCH (08:00)
[2016-09-13 08:01] LABS: HCO3 ABG 25 mmol/L (21-28); PCO2 ABG 28 mmHg (35-46); PO2 ABG 129 mmHg (65-108); SAT O2 ABG 98 % (92-99)
[2016-09-13 08:08] LABS: FIO2 ABG 40; PH ABG 7.57 (7.35-7.45)
[2016-09-13] MEDS: CHLORHEXIDINE 0.12% 15 ML MOUTHWASH. MM SCH ×2 (09:00→11:44)
[2016-09-13] MEDS ORDERED: FUROSEMIDE 20 MG TABLET PO SCH (09:00)
[2016-09-13] MEDS ORDERED: NON FORMULARY ITEM (Esomeprazole Magnesium (Nexium Capsule) 40 MG) PO SCH (09:00)
[2016-09-13 09:14] LABS: CALCIUM 8.5 mg/dL (8.5-10.1); CREATININE 0.9 mg/dL (0.6-1.0); GFR 73.9; POTASSIUM 3.2 mmol/L (3.5-5.1)
[2016-09-13 09:21] LABS: BASO % 0 % (0-3); EOS % 6 % (0-3); HEMATOCRIT 30.1 % (36.0-47.0); HEMOGLOBIN 10.5 g/dL (12.0-15.5); LYMPH # 1.5 x10^3/uL (1.0-4.8); LYMPH % 22 % (24-48); MEAN CORPUSCULAR HEMOGLOBIN 32 pg (25-35); MEAN CORPUSCULAR HGB CONC 35 g/dL (31-37); MEAN CORPUSCULAR VOLUME 93 fL (79-100); MONO % 11 % (0-9); NEUT % 61 % (31-73); PLATELET COUNT 153 x10^3/uL (140-400); RED BLOOD COUNT 3.24 x10^6/uL (3.50-5.40); RED CELL DISTRIBUTION WIDTH 14.9 % (11.5-14.5)
[2016-09-13] MEDS: CITALOPRAM 20 MG TABLET. PO SCH (09:51)
[2016-09-13] MEDS: amLODIPine BESYLATE 2.5 MG TABLET PO SCH (09:52)
[2016-09-13] MEDS: busPIRone 5 MG TABLET. PO SCH (09:52)
[2016-09-13] MEDS: ENOXAPARIN 40 MG/0.4 ML SYRINGE. SQ SCH (09:56)
[2016-09-13] MEDS ORDERED: ZOLP5TAB PO (10:25)
[2016-09-13] MEDS ORDERED: ALPR0.5T6 PO (10:25)
[2016-09-13] MEDS ORDERED: HYDR-971 PO (11:03)
[2016-09-13] MEDS ORDERED: PSEU1CAP14 PO (11:03)
[2016-09-13] MEDS ORDERED: FURO20TA3 PO (11:03)
[2016-09-13] MEDS ORDERED: TRAZ300T2 PO (11:03)
[2016-09-13] MEDS ORDERED: CARV6.252 PO (11:03)
[2016-09-13] MEDS ORDERED: SENN-37 PO (11:03)
[2016-09-13] MEDS ORDERED: POTA20TA82 PO (11:03)
[2016-09-13] MEDS ORDERED: PROAIR HFA8.5 GM INH (11:03)
[2016-09-13] MEDS: hydrALAZINE 20 MG/ML VIAL. IVP PRN ×2 (11:08→21:27)
--- NOTE | 2016-09-13 11:08 | PDOC ---
PULMONARY PROGRESS NOTES Subjective AWAKE, ON CPAP TRIAL Vitals Vital Signs Date Time Temp Pulse Resp B/P (MAP) Pulse Ox O2 Delivery O2 Flow Rate FiO2 09/13/16 09:52 47 160/69 09/13/16 09:02 100 Ventilator 09/13/16 06:00 17 09/13/16 04:00 98.6 98.6 General: Alert, No acute distress Lungs: Clear Cardiovascular: S1 Abdomen: Soft Neuro Exam: Alert Extremities: Other (TRACE EDEMA) Labs Laboratory Tests Test 09/12/16 13:42 09/12/16 13:45 09/12/16 14:35 09/13/16 08:00 O2 Saturation 98 % (92-99) 98 % (92-99) Arterial Blood pH 7.46 (7.35-7.45) 7.57 (7.35-7.45) Arterial Blood pCO2 at Patient Temp 38 mmHg (35-46) 28 mmHg (35-46) Arterial Blood pO2 at Patient Temp 116 mmHg (65-108) 129 mmHg (65-108) Arterial Blood HCO3 27 mmol/L (21-28) 25 mmol/L (21-28) Arterial Blood Base Excess 3 mmol/L (-3-3) 3 mmol/L (-3-3) FiO2 40 40 Urine Collection Type Unknown Urine Color Yellow Urine Clarity Clear Urine pH 6.0 Urine Specific Herscher 1.020 Urine Protein Negative mg/dL (NEG-TRACE) Urine Glucose (UA) Negative mg/dL (NEG) Urine Ketones (Stick) Trace mg/dL (NEG) Urine Blood Negative (NEG) Urine Nitrite Negative (NEG) Urine Bilirubin Negative (NEG) Urine Urobilinogen Dipstick 0.2 mg/dL (0.2 mg/dL) Urine Leukocyte Esterase Negative (NEG) Urine RBC 0 /HPF (0-2) Urine WBC 0 /HPF (0-4) Urine Squamous Epithelial Cells None /LPF Urine Bacteria 0 /HPF (0-FEW) Urine Mucus Slight /LPF Urine Opiates Screen Pos (NEG) Urine Methadone Screen Neg (NEG) Urine Barbiturates Neg (NEG) Urine Phencyclidine Screen Neg (NEG) Urine Amphetamine/Methamphetamine Neg (NEG) Urine Benzodiazepines Screen Pos (NEG) Urine Cocaine Screen Neg (NEG) Urine Cannabinoids Screen Pos (NEG) Urine Ethyl Alcohol Neg (NEG) White Blood Count 8.9 x10^3/uL (4.0-11.0) Red Blood Count 4.05 x10^6/uL (3.50-5.40) Hemoglobin 13.0 g/dL (12.0-15.5) Hematocrit 38.9 % (36.0-47.0) Mean Corpuscular Volume 96 fL (79-100) Mean Corpuscular Hemoglobin 32 pg (25-35) Mean Corpuscular Hemoglobin Concent 33 g/dL (31-37) Red Cell Distribution Width 15.3 % (11.5-14.5) Platelet Count 173 x10^3/uL (140-400) Neutrophils (%) (Auto) 78 % (31-73) Lymphocytes (%) (Auto) 12 % (24-48) Monocytes (%) (Auto) 7 % (0-9) Eosinophils (%) (Auto) 3 % (0-3) Basophils (%) (Auto) 0 % (0-3) Neutrophils # (Auto) 6.9 x10^3uL (1.8-7.7) Lymphocytes # (Auto) 1.1 x10^3/uL (1.0-4.8) Monocytes # (Auto) 0.6 x10^3/uL (0.0-1.1) Eosinophils # (Auto) 0.2 x10^3/uL (0.0-0.7) Basophils # (Auto) 0.0 x10^3/uL (0.0-0.2) Sodium Level 142 mmol/L (136-145) Potassium Level 3.6 mmol/L (3.5-5.1) Chloride Level 103 mmol/L (98-107) Carbon Dioxide Level 29 mmol/L (21-32) Anion Gap 10 (6-14) Blood Urea Nitrogen 13 mg/dL (7-20) Creatinine 0.7 mg/dL (0.6-1.0) Estimated GFR (Cockcroft-Gault) 98.7 BUN/Creatinine Ratio 19 (6-20) Glucose Level 101 mg/dL (70-99) Calcium Level 8.8 mg/dL (8.5-10.1) Total Bilirubin 0.5 mg/dL (0.2-1.0) Aspartate Amino Transf (AST/SGOT) 28 U/L (15-37) Alanine Aminotransferase (ALT/SGPT) 18 U/L (14-59) Alkaline Phosphatase 83 U/L (46-116) Troponin I Quantitative 0.086 ng/mL (0.000-0.055) TX-Jkb-U-Type Natriuretic Peptide 636 pg/mL (0-449) Total Protein 6.9 g/dL (6.4-8.2) Albumin 3.4 g/dL (3.4-5.0) Albumin/Globulin Ratio 1.0 (1.0-1.7) Salicylates Level < 2.8 mg/dL (2.8-20.0) Salicylate Last Dose Date Unknown Salicylate Last Dose Time Unknown Acetaminophen Level < 2 mcg/ml (10-30) Acetaminophen Last Dose Date Unknown Acetaminophen Last Dose Time Unknown Ethyl Alcohol Level < 10 mg/dL (0-10) Test 09/13/16 08:20 White Blood Count 7.0 x10^3/uL (4.0-11.0) Red Blood Count 3.24 x10^6/uL (3.50-5.40) Hemoglobin 10.5 g/dL (12.0-15.5) Hematocrit 30.1 % (36.0-47.0) Mean Corpuscular Volume 93 fL (79-100) Mean Corpuscular Hemoglobin 32 pg (25-35) Mean Corpuscular Hemoglobin Concent 35 g/dL (31-37) Red Cell Distribution Width 14.9 % (11.5-14.5) Platelet Count 153 x10^3/uL (140-400) Neutrophils (%) (Auto) 61 % (31-73) Lymphocytes (%) (Auto) 22 % (24-48) Monocytes (%) (Auto) 11 % (0-9) Eosinophils (%) (Auto) 6 % (0-3) Basophils (%) (Auto) 0 % (0-3) Neutrophils # (Auto) 4.3 x10^3uL (1.8-7.7) Lymphocytes # (Auto) 1.5 x10^3/uL (1.0-4.8) Monocytes # (Auto) 0.8 x10^3/uL (0.0-1.1) Eosinophils # (Auto) 0.4 x10^3/uL (0.0-0.7) Basophils # (Auto) 0.0 x10^3/uL (0.0-0.2) Sodium Level 141 mmol/L (136-145) Potassium Level 3.2 mmol/L (3.5-5.1) Chloride Level 105 mmol/L (98-107) Carbon Dioxide Level 30 mmol/L (21-32) Anion Gap 6 (6-14) Blood Urea Nitrogen 12 mg/dL (7-20) Creatinine 0.9 mg/dL (0.6-1.0) Estimated GFR (Cockcroft-Gault) 73.9 Glucose Level 97 mg/dL (70-99) Calcium Level 8.5 mg/dL (8.5-10.1) Laboratory Tests Test 09/12/16 13:42 09/12/16 13:45 09/12/16 14:35 09/13/16 08:00 O2 Saturation 98 % (92-99) 98 % (92-99) Arterial Blood pH 7.46 (7.35-7.45) 7.57 (7.35-7.45) Arterial Blood pCO2 at Patient Temp 38 mmHg (35-46) 28 mmHg (35-46) Arterial Blood pO2 at Patient Temp 116 mmHg (65-108) 129 mmHg (65-108) Arterial Blood HCO3 27 mmol/L (21-28) 25 mmol/L (21-28) Arterial Blood Base Excess 3 mmol/L (-3-3) 3 mmol/L (-3-3) FiO2 40 40 Urine Collection Type Unknown Urine Color Yellow Urine Clarity Clear Urine pH 6.0 Urine Specific Herscher 1.020 Urine Protein Negative mg/dL (NEG-TRACE) Urine Glucose (UA) Negative mg/dL (NEG) Urine Ketones (Stick) Trace mg/dL (NEG) Urine Blood Negative (NEG) Urine Nitrite Negative (NEG) Urine Bilirubin Negative (NEG) Urine Urobilinogen Dipstick 0.2 mg/dL (0.2 mg/dL) Urine Leukocyte Esterase Negative (NEG) Urine RBC 0 /HPF (0-2) Urine WBC 0 /HPF (0-4) Urine Squamous Epithelial Cells None /LPF Urine Bacteria 0 /HPF (0-FEW) Urine Mucus Slight /LPF Urine Opiates Screen Pos (NEG) Urine Methadone Screen Neg (NEG) Urine Barbiturates Neg (NEG) Urine Phencyclidine Screen Neg (NEG) Urine Amphetamine/Methamphetamine Neg (NEG) Urine Benzodiazepines Screen Pos (NEG) Urine Cocaine Screen Neg (NEG) Urine Cannabinoids Screen Pos (NEG) Urine Ethyl Alcohol Neg (NEG) White Blood Count 8.9 x10^3/uL (4.0-11.0) Red Blood Count 4.05 x10^6/uL (3.50-5.40) Hemoglobin 13.0 g/dL (12.0-15.5) Hematocrit 38.9 % (36.0-47.0) Mean Corpuscular Volume 96 fL (79-100) Mean Corpuscular Hemoglobin 32 pg (25-35) Mean Corpuscular Hemoglobin Concent 33 g/dL (31-37) Red Cell Distribution Width 15.3 % (11.5-14.5) Platelet Count 173 x10^3/uL (140-400) Neutrophils (%) (Auto) 78 % (31-73) Lymphocytes (%) (Auto) 12 % (24-48) Monocytes (%) (Auto) 7 % (0-9) Eosinophils (%) (Auto) 3 % (0-3) Basophils (%) (Auto) 0 % (0-3) Neutrophils # (Auto) 6.9 x10^3uL (1.8-7.7) Lymphocytes # (Auto) 1.1 x10^3/uL (1.0-4.8) Monocytes # (Auto) 0.6 x10^3/uL (0.0-1.1) Eosinophils # (Auto) 0.2 x10^3/uL (0.0-0.7) Basophils # (Auto) 0.0 x10^3/uL (0.0-0.2) Sodium Level 142 mmol/L (136-145) Potassium Level 3.6 mmol/L (3.5-5.1) Chloride Level 103 mmol/L (98-107) Carbon Dioxide Level 29 mmol/L (21-32) Anion Gap 10 (6-14) Blood Urea Nitrogen 13 mg/dL (7-20) Creatinine 0.7 mg/dL (0.6-1.0) Estimated GFR (Cockcroft-Gault) 98.7 BUN/Creatinine Ratio 19 (6-20) Glucose Level 101 mg/dL (70-99) Calcium Level 8.8 mg/dL (8.5-10.1) Total Bilirubin 0.5 mg/dL (0.2-1.0) Aspartate Amino Transf (AST/SGOT) 28 U/L (15-37) Alanine Aminotransferase (ALT/SGPT) 18 U/L (14-59) Alkaline Phosphatase 83 U/L (46-116) Troponin I Quantitative 0.086 ng/mL (0.000-0.055) JZ-Mdh-V-Type Natriuretic Peptide 636 pg/mL (0-449) Total Protein 6.9 g/dL (6.4-8.2) Albumin 3.4 g/dL (3.4-5.0) Albumin/Globulin Ratio 1.0 (1.0-1.7) Salicylates Level < 2.8 mg/dL (2.8-20.0) Salicylate Last Dose Date Unknown Salicylate Last Dose Time Unknown Acetaminophen Level < 2 mcg/ml (10-30) Acetaminophen Last Dose Date Unknown Acetaminophen Last Dose Time Unknown Ethyl Alcohol Level < 10 mg/dL (0-10) Test 09/13/16 08:20 White Blood Count 7.0 x10^3/uL (4.0-11.0) Red Blood Count 3.24 x10^6/uL (3.50-5.40) Hemoglobin 10.5 g/dL (12.0-15.5) Hematocrit 30.1 % (36.0-47.0) Mean Corpuscular Volume 93 fL (79-100) Mean Corpuscular Hemoglobin 32 pg (25-35) Mean Corpuscular Hemoglobin Concent 35 g/dL (31-37) Red Cell Distribution Width 14.9 % (11.5-14.5) Platelet Count 153 x10^3/uL (140-400) Neutrophils (%) (Auto) 61 % (31-73) Lymphocytes (%) (Auto) 22 % (24-48) Monocytes (%) (Auto) 11 % (0-9) Eosinophils (%) (Auto) 6 % (0-3) Basophils (%) (Auto) 0 % (0-3) Neutrophils # (Auto) 4.3 x10^3uL (1.8-7.7) Lymphocytes # (Auto) 1.5 x10^3/uL (1.0-4.8) Monocytes # (Auto) 0.8 x10^3/uL (0.0-1.1) Eosinophils # (Auto) 0.4 x10^3/uL (0.0-0.7) Basophils # (Auto) 0.0 x10^3/uL (0.0-0.2) Sodium Level 141 mmol/L (136-145) Potassium Level 3.2 mmol/L (3.5-5.1) Chloride Level 105 mmol/L (98-107) Carbon Dioxide Level 30 mmol/L (21-32) Anion Gap 6 (6-14) Blood Urea Nitrogen 12 mg/dL (7-20) Creatinine 0.9 mg/dL (0.6-1.0) Estimated GFR (Cockcroft-Gault) 73.9 Glucose Level 97 mg/dL (70-99) Calcium Level 8.5 mg/dL (8.5-10.1) Medications Active Scripts Medications Dose Route/Sig Max Daily Dose Days Date Category Trazodone Hcl 300 Mg Tablet 1 Tab PO QHS 09/13/16 Reported Furosemide 20 Mg Tablet 1 Tab PO DAILY PRN 09/13/16 Reported Potassium Chloride 20 Meq Tablet.er 20 Meq PO DAILY 09/13/16 Reported Proair Hfa Inhaler (Albuterol Sulfate) 8.5 Gm Hfa.aer.ad 1-2 Puff INH PRN Q4HRS PRN 09/13/16 Reported Semprex-D 8 Mg-60 Mg Capsule (Pseudoephedrine Hcl/Acrivas) 1 Each Capsule 1 Cap PO Q6HRS PRN 09/13/16 Reported Carvedilol 6.25 Mg Tablet 1 Tab PO BID 09/13/16 Reported Senokot-S Tablet (Sennosides/Docusate Sodium) 1 Each Tablet 1 Tab PO BID PRN 09/13/16 Reported Stafford 5-325 Tablet (Acetaminophen/Hydrocodone Bitart) 1 Each Tablet 1-2 Tab PO TID PRN PRN 09/13/16 Reported Ambien (Zolpidem Tartrate) 5 Mg Tablet 1 Tab PO QHS 09/13/16 Reported Alprazolam 0.5 Mg Tablet 1 Tab PO BID PRN 09/13/16 Reported Celexa (Citalopram Hydrobromide) 20 Mg Tablet 20 Mg PO DAILY 03/20/13 Reported Nexium Capsule (Esomeprazole Magnesium) 40 Mg Capsule.dr 40 Mg PO DAILY 03/20/13 Reported FENTANYL 50mcg/hr (Fentanyl) 1 Each Patch.td72 1 Each TD Q3DAYS 03/20/13 Reported Zostavax Vial (Zoster Vaccine Live/Pf) 19,400 Unit Vial 19,400 Unit SQ 03/20/13 Reported Pravastatin Sodium 80 Mg Tablet 80 Mg PO DAILY 03/20/13 Reported Impression . ACUTE RESP FAILURE SEC TO OD ON FENTANYL CHRONIC PAIN SYNDROME TOXIC ENCEPHALOPATHY POA COPD FEVER COULD BE RELATED TO OD CXR IS CLEAR Plan . CPAP TRIAL POSSIBLE EXTUBATION TODAY MANAGEMENT OF BP IV FLUIDS PRN D/W RN AND DAUGHTER JOLLY GOULD MD Sep 13, 2016 11:08
[2016-09-13 11:25] LABS: HCO3 ABG 24 mmol/L (21-28); PCO2 ABG 21 mmHg (35-46); PO2 ABG 147 mmHg (65-108); SAT O2 ABG 99 % (92-99)
[2016-09-13] MEDS: MORPHINE SULFATE 2 MG/ML DISP.SYRIN. IV PRN ×3 (11:37→21:28)
[2016-09-13 11:41] LABS: FIO2 ABG 40; PH ABG 7.67 (7.35-7.45)
--- NOTE | 2016-09-13 11:52 | PDOC ---
PROGRESS NOTES Chief Complaint Chief Complaint AMS Opioid O/D ASSESSMENT AND PLAN: 1. Toxic encephalopathy: 2/2 fentanyl OD. reassess when extubated 2. Acute resp failure: required intubation at presentation. 2/2 opioid OD. hopefully able to extubate today. Pulm following 3. Chronic shoulder/back and abd pain: on multiple pain meds, incl fentanyl. [place] when extubated 4. Fentanyl OD: suspicious for intentional OD with triple patches on skin, 1 in mouth when found. PAT team eval post extubation 5. Hx benzo W/D: admitted 3 yrs ago. remains no trazodone 300 and ambien at home. hold ambien 6. Drug abuse: marijuana 7. Dementia 8. HTN, HLD: no acute issues; cont home meds 9. Hx uterus/cervical Ca post sx 10. Recent hx urinary incontinence: F/U with urology on O/P basis 11. Prophylaxis: lovenox, H2B Vitals Vitals Vital Signs Date Time Temp Pulse Resp B/P (MAP) Pulse Ox O2 Delivery O2 Flow Rate FiO2 09/13/16 11:08 68 198/80 09/13/16 09:02 100 Ventilator 09/13/16 06:00 17 09/13/16 04:00 98.6 98.6 Physical Exam General: Other (intubated, sedated) Heart: Regular rate Lungs: Clear Abdomen: Normal bowel sounds, No tenderness Extremities: No edema Skin: No rashes Labs LABS Laboratory Tests Test 09/12/16 13:42 09/12/16 13:45 09/12/16 14:35 09/13/16 08:00 O2 Saturation 98 % (92-99) 98 % (92-99) Arterial Blood pH 7.46 (7.35-7.45) 7.57 (7.35-7.45) Arterial Blood pCO2 at Patient Temp 38 mmHg (35-46) 28 mmHg (35-46) Arterial Blood pO2 at Patient Temp 116 mmHg (65-108) 129 mmHg (65-108) Arterial Blood HCO3 27 mmol/L (21-28) 25 mmol/L (21-28) Arterial Blood Base Excess 3 mmol/L (-3-3) 3 mmol/L (-3-3) FiO2 40 40 Urine Collection Type Unknown Urine Color Yellow Urine Clarity Clear Urine pH 6.0 Urine Specific [place] 1.020 Urine Protein Negative mg/dL (NEG-TRACE) Urine Glucose (UA) Negative mg/dL (NEG) Urine Ketones (Stick) Trace mg/dL (NEG) Urine Blood Negative (NEG) Urine Nitrite Negative (NEG) Urine Bilirubin Negative (NEG) Urine Urobilinogen Dipstick 0.2 mg/dL (0.2 mg/dL) Urine Leukocyte Esterase Negative (NEG) Urine RBC 0 /HPF (0-2) Urine WBC 0 /HPF (0-4) Urine Squamous Epithelial Cells None /LPF Urine Bacteria 0 /HPF (0-FEW) Urine Mucus Slight /LPF Urine Opiates Screen Pos (NEG) Urine Methadone Screen Neg (NEG) Urine Barbiturates Neg (NEG) Urine Phencyclidine Screen Neg (NEG) Urine Amphetamine/Methamphetamine Neg (NEG) Urine Benzodiazepines Screen Pos (NEG) Urine Cocaine Screen Neg (NEG) Urine Cannabinoids Screen Pos (NEG) Urine Ethyl Alcohol Neg (NEG) White Blood Count 8.9 x10^3/uL (4.0-11.0) Red Blood Count 4.05 x10^6/uL (3.50-5.40) Hemoglobin 13.0 g/dL (12.0-15.5) Hematocrit 38.9 % (36.0-47.0) Mean Corpuscular Volume 96 fL (79-100) Mean Corpuscular Hemoglobin 32 pg (25-35) Mean Corpuscular Hemoglobin Concent 33 g/dL (31-37) Red Cell Distribution Width 15.3 % (11.5-14.5) Platelet Count 173 x10^3/uL (140-400) Neutrophils (%) (Auto) 78 % (31-73) Lymphocytes (%) (Auto) 12 % (24-48) Monocytes (%) (Auto) 7 % (0-9) Eosinophils (%) (Auto) 3 % (0-3) Basophils (%) (Auto) 0 % (0-3) Neutrophils # (Auto) 6.9 x10^3uL (1.8-7.7) Lymphocytes # (Auto) 1.1 x10^3/uL (1.0-4.8) Monocytes # (Auto) 0.6 x10^3/uL (0.0-1.1) Eosinophils # (Auto) 0.2 x10^3/uL (0.0-0.7) Basophils # (Auto) 0.0 x10^3/uL (0.0-0.2) Sodium Level 142 mmol/L (136-145) Potassium Level 3.6 mmol/L (3.5-5.1) Chloride Level 103 mmol/L (98-107) Carbon Dioxide Level 29 mmol/L (21-32) Anion Gap 10 (6-14) Blood Urea Nitrogen 13 mg/dL (7-20) Creatinine 0.7 mg/dL (0.6-1.0) Estimated GFR (Cockcroft-Gault) 98.7 BUN/Creatinine Ratio 19 (6-20) Glucose Level 101 mg/dL (70-99) Calcium Level 8.8 mg/dL (8.5-10.1) Total Bilirubin 0.5 mg/dL (0.2-1.0) Aspartate Amino Transf (AST/SGOT) 28 U/L (15-37) Alanine Aminotransferase (ALT/SGPT) 18 U/L (14-59) Alkaline Phosphatase 83 U/L (46-116) Troponin I Quantitative 0.086 ng/mL (0.000-0.055) HW-Zdr-J-Type Natriuretic Peptide 636 pg/mL (0-449) Total Protein 6.9 g/dL (6.4-8.2) Albumin 3.4 g/dL (3.4-5.0) Albumin/Globulin Ratio 1.0 (1.0-1.7) Salicylates Level < 2.8 mg/dL (2.8-20.0) Salicylate Last Dose Date Unknown Salicylate Last Dose Time Unknown Acetaminophen Level < 2 mcg/ml (10-30) Acetaminophen Last Dose Date Unknown Acetaminophen Last Dose Time Unknown Ethyl Alcohol Level < 10 mg/dL (0-10) Test 09/13/16 08:20 White Blood Count 7.0 x10^3/uL (4.0-11.0) Red Blood Count 3.24 x10^6/uL (3.50-5.40) Hemoglobin 10.5 g/dL (12.0-15.5) Hematocrit 30.1 % (36.0-47.0) Mean Corpuscular Volume 93 fL (79-100) Mean Corpuscular Hemoglobin 32 pg (25-35) Mean Corpuscular Hemoglobin Concent 35 g/dL (31-37) Red Cell Distribution Width 14.9 % (11.5-14.5) Platelet Count 153 x10^3/uL (140-400) Neutrophils (%) (Auto) 61 % (31-73) Lymphocytes (%) (Auto) 22 % (24-48) Monocytes (%) (Auto) 11 % (0-9) Eosinophils (%) (Auto) 6 % (0-3) Basophils (%) (Auto) 0 % (0-3) Neutrophils # (Auto) 4.3 x10^3uL (1.8-7.7) Lymphocytes # (Auto) 1.5 x10^3/uL (1.0-4.8) Monocytes # (Auto) 0.8 x10^3/uL (0.0-1.1) Eosinophils # (Auto) 0.4 x10^3/uL (0.0-0.7) Basophils # (Auto) 0.0 x10^3/uL (0.0-0.2) Sodium Level 141 mmol/L (136-145) Potassium Level 3.2 mmol/L (3.5-5.1) Chloride Level 105 mmol/L (98-107) Carbon Dioxide Level 30 mmol/L (21-32) Anion Gap 6 (6-14) Blood Urea Nitrogen 12 mg/dL (7-20) Creatinine 0.9 mg/dL (0.6-1.0) Estimated GFR (Cockcroft-Gault) 73.9 Glucose Level 97 mg/dL (70-99) Calcium Level 8.5 mg/dL (8.5-10.1) Assessment and Plan Assessmemt and Plan Problems Medical Problems: (1) Narcotic overdose Status: Acute (2) Respiratory failure Status: Acute Problems: Comment Review of Relevant I have reviewed the following items estelita (where applicable) has been applied. Labs Laboratory Tests Test 09/12/16 13:42 09/12/16 13:45 09/12/16 14:35 09/13/16 08:00 O2 Saturation 98 % (92-99) 98 % (92-99) Arterial Blood pH 7.46 (7.35-7.45) 7.57 (7.35-7.45) Arterial Blood pCO2 at Patient Temp 38 mmHg (35-46) 28 mmHg (35-46) Arterial Blood pO2 at Patient Temp 116 mmHg (65-108) 129 mmHg (65-108) Arterial Blood HCO3 27 mmol/L (21-28) 25 mmol/L (21-28) Arterial Blood Base Excess 3 mmol/L (-3-3) 3 mmol/L (-3-3) FiO2 40 40 Urine Collection Type Unknown Urine Color Yellow Urine Clarity Clear Urine pH 6.0 Urine Specific [place] 1.020 Urine Protein Negative mg/dL (NEG-TRACE) Urine Glucose (UA) Negative mg/dL (NEG) Urine Ketones (Stick) Trace mg/dL (NEG) Urine Blood Negative (NEG) Urine Nitrite Negative (NEG) Urine Bilirubin Negative (NEG) Urine Urobilinogen Dipstick 0.2 mg/dL (0.2 mg/dL) Urine Leukocyte Esterase Negative (NEG) Urine RBC 0 /HPF (0-2) Urine WBC 0 /HPF (0-4) Urine Squamous Epithelial Cells None /LPF Urine Bacteria 0 /HPF (0-FEW) Urine Mucus Slight /LPF Urine Opiates Screen Pos (NEG) Urine Methadone Screen Neg (NEG) Urine Barbiturates Neg (NEG) Urine Phencyclidine Screen Neg (NEG) Urine Amphetamine/Methamphetamine Neg (NEG) Urine Benzodiazepines Screen Pos (NEG) Urine Cocaine Screen Neg (NEG) Urine Cannabinoids Screen Pos (NEG) Urine Ethyl Alcohol Neg (NEG) White Blood Count 8.9 x10^3/uL (4.0-11.0) Red Blood Count 4.05 x10^6/uL (3.50-5.40) Hemoglobin 13.0 g/dL (12.0-15.5) Hematocrit 38.9 % (36.0-47.0) Mean Corpuscular Volume 96 fL (79-100) Mean Corpuscular Hemoglobin 32 pg (25-35) Mean Corpuscular Hemoglobin Concent 33 g/dL (31-37) Red Cell Distribution Width 15.3 % (11.5-14.5) Platelet Count 173 x10^3/uL (140-400) Neutrophils (%) (Auto) 78 % (31-73) Lymphocytes (%) (Auto) 12 % (24-48) Monocytes (%) (Auto) 7 % (0-9) Eosinophils (%) (Auto) 3 % (0-3) Basophils (%) (Auto) 0 % (0-3) Neutrophils # (Auto) 6.9 x10^3uL (1.8-7.7) Lymphocytes # (Auto) 1.1 x10^3/uL (1.0-4.8) Monocytes # (Auto) 0.6 x10^3/uL (0.0-1.1) Eosinophils # (Auto) 0.2 x10^3/uL (0.0-0.7) Basophils # (Auto) 0.0 x10^3/uL (0.0-0.2) Sodium Level 142 mmol/L (136-145) Potassium Level 3.6 mmol/L (3.5-5.1) Chloride Level 103 mmol/L (98-107) Carbon Dioxide Level 29 mmol/L (21-32) Anion Gap 10 (6-14) Blood Urea Nitrogen 13 mg/dL (7-20) Creatinine 0.7 mg/dL (0.6-1.0) Estimated GFR (Cockcroft-Gault) 98.7 BUN/Creatinine Ratio 19 (6-20) Glucose Level 101 mg/dL (70-99) Calcium Level 8.8 mg/dL (8.5-10.1) Total Bilirubin 0.5 mg/dL (0.2-1.0) Aspartate Amino Transf (AST/SGOT) 28 U/L (15-37) Alanine Aminotransferase (ALT/SGPT) 18 U/L (14-59) Alkaline Phosphatase 83 U/L (46-116) Troponin I Quantitative 0.086 ng/mL (0.000-0.055) UX-Srx-T-Type Natriuretic Peptide 636 pg/mL (0-449) Total Protein 6.9 g/dL (6.4-8.2) Albumin 3.4 g/dL (3.4-5.0) Albumin/Globulin Ratio 1.0 (1.0-1.7) Salicylates Level < 2.8 mg/dL (2.8-20.0) Salicylate Last Dose Date Unknown Salicylate Last Dose Time Unknown Acetaminophen Level < 2 mcg/ml (10-30) Acetaminophen Last Dose Date Unknown Acetaminophen Last Dose Time Unknown Ethyl Alcohol Level < 10 mg/dL (0-10) Test 09/13/16 08:20 White Blood Count 7.0 x10^3/uL (4.0-11.0) Red Blood Count 3.24 x10^6/uL (3.50-5.40) Hemoglobin 10.5 g/dL (12.0-15.5) Hematocrit 30.1 % (36.0-47.0) Mean Corpuscular Volume 93 fL (79-100) Mean Corpuscular Hemoglobin 32 pg (25-35) Mean Corpuscular Hemoglobin Concent 35 g/dL (31-37) Red Cell Distribution Width 14.9 % (11.5-14.5) Platelet Count 153 x10^3/uL (140-400) Neutrophils (%) (Auto) 61 % (31-73) Lymphocytes (%) (Auto) 22 % (24-48) Monocytes (%) (Auto) 11 % (0-9) Eosinophils (%) (Auto) 6 % (0-3) Basophils (%) (Auto) 0 % (0-3) Neutrophils # (Auto) 4.3 x10^3uL (1.8-7.7) Lymphocytes # (Auto) 1.5 x10^3/uL (1.0-4.8) Monocytes # (Auto) 0.8 x10^3/uL (0.0-1.1) Eosinophils # (Auto) 0.4 x10^3/uL (0.0-0.7) Basophils # (Auto) 0.0 x10^3/uL (0.0-0.2) Sodium Level 141 mmol/L (136-145) Potassium Level 3.2 mmol/L (3.5-5.1) Chloride Level 105 mmol/L (98-107) Carbon Dioxide Level 30 mmol/L (21-32) Anion Gap 6 (6-14) Blood Urea Nitrogen 12 mg/dL (7-20) Creatinine 0.9 mg/dL (0.6-1.0) Estimated GFR (Cockcroft-Gault) 73.9 Glucose Level 97 mg/dL (70-99) Calcium Level 8.5 mg/dL (8.5-10.1) Laboratory Tests Test 09/12/16 13:42 09/12/16 13:45 09/12/16 14:35 09/13/16 08:00 O2 Saturation 98 % (92-99) 98 % (92-99) Arterial Blood pH 7.46 (7.35-7.45) 7.57 (7.35-7.45) Arterial Blood pCO2 at Patient Temp 38 mmHg (35-46) 28 mmHg (35-46) Arterial Blood pO2 at Patient Temp 116 mmHg (65-108) 129 mmHg (65-108) Arterial Blood HCO3 27 mmol/L (21-28) 25 mmol/L (21-28) Arterial Blood Base Excess 3 mmol/L (-3-3) 3 mmol/L (-3-3) FiO2 40 40 Urine Collection Type Unknown Urine Color Yellow Urine Clarity Clear Urine pH 6.0 Urine Specific [place] 1.020 Urine Protein Negative mg/dL (NEG-TRACE) Urine Glucose (UA) Negative mg/dL (NEG) Urine Ketones (Stick) Trace mg/dL (NEG) Urine Blood Negative (NEG) Urine Nitrite Negative (NEG) Urine Bilirubin Negative (NEG) Urine Urobilinogen Dipstick 0.2 mg/dL (0.2 mg/dL) Urine Leukocyte Esterase Negative (NEG) Urine RBC 0 /HPF (0-2) Urine WBC 0 /HPF (0-4) Urine Squamous Epithelial Cells None /LPF Urine Bacteria 0 /HPF (0-FEW) Urine Mucus Slight /LPF Urine Opiates Screen Pos (NEG) Urine Methadone Screen Neg (NEG) Urine Barbiturates Neg (NEG) Urine Phencyclidine Screen Neg (NEG) Urine Amphetamine/Methamphetamine Neg (NEG) Urine Benzodiazepines Screen Pos (NEG) Urine Cocaine Screen Neg (NEG) Urine Cannabinoids Screen Pos (NEG) Urine Ethyl Alcohol Neg (NEG) White Blood Count 8.9 x10^3/uL (4.0-11.0) Red Blood Count 4.05 x10^6/uL (3.50-5.40) Hemoglobin 13.0 g/dL (12.0-15.5) Hematocrit 38.9 % (36.0-47.0) Mean Corpuscular Volume 96 fL (79-100) Mean Corpuscular Hemoglobin 32 pg (25-35) Mean Corpuscular Hemoglobin Concent 33 g/dL (31-37) Red Cell Distribution Width 15.3 % (11.5-14.5) Platelet Count 173 x10^3/uL (140-400) Neutrophils (%) (Auto) 78 % (31-73) Lymphocytes (%) (Auto) 12 % (24-48) Monocytes (%) (Auto) 7 % (0-9) Eosinophils (%) (Auto) 3 % (0-3) Basophils (%) (Auto) 0 % (0-3) Neutrophils # (Auto) 6.9 x10^3uL (1.8-7.7) Lymphocytes # (Auto) 1.1 x10^3/uL (1.0-4.8) Monocytes # (Auto) 0.6 x10^3/uL (0.0-1.1) Eosinophils # (Auto) 0.2 x10^3/uL (0.0-0.7) Basophils # (Auto) 0.0 x10^3/uL (0.0-0.2) Sodium Level 142 mmol/L (136-145) Potassium Level 3.6 mmol/L (3.5-5.1) Chloride Level 103 mmol/L (98-107) Carbon Dioxide Level 29 mmol/L (21-32) Anion Gap 10 (6-14) Blood Urea Nitrogen 13 mg/dL (7-20) Creatinine 0.7 mg/dL (0.6-1.0) Estimated GFR (Cockcroft-Gault) 98.7 BUN/Creatinine Ratio 19 (6-20) Glucose Level 101 mg/dL (70-99) Calcium Level 8.8 mg/dL (8.5-10.1) Total Bilirubin 0.5 mg/dL (0.2-1.0) Aspartate Amino Transf (AST/SGOT) 28 U/L (15-37) Alanine Aminotransferase (ALT/SGPT) 18 U/L (14-59) Alkaline Phosphatase 83 U/L (46-116) Troponin I Quantitative 0.086 ng/mL (0.000-0.055) MD-Adq-D-Type Natriuretic Peptide 636 pg/mL (0-449) Total Protein 6.9 g/dL (6.4-8.2) Albumin 3.4 g/dL (3.4-5.0) Albumin/Globulin Ratio 1.0 (1.0-1.7) Salicylates Level < 2.8 mg/dL (2.8-20.0) Salicylate Last Dose Date Unknown Salicylate Last Dose Time Unknown Acetaminophen Level < 2 mcg/ml (10-30) Acetaminophen Last Dose Date Unknown Acetaminophen Last Dose Time Unknown Ethyl Alcohol Level < 10 mg/dL (0-10) Test 09/13/16 08:20 White Blood Count 7.0 x10^3/uL (4.0-11.0) Red Blood Count 3.24 x10^6/uL (3.50-5.40) Hemoglobin 10.5 g/dL (12.0-15.5) Hematocrit 30.1 % (36.0-47.0) Mean Corpuscular Volume 93 fL (79-100) Mean Corpuscular Hemoglobin 32 pg (25-35) Mean Corpuscular Hemoglobin Concent 35 g/dL (31-37) Red Cell Distribution Width 14.9 % (11.5-14.5) Platelet Count 153 x10^3/uL (140-400) Neutrophils (%) (Auto) 61 % (31-73) Lymphocytes (%) (Auto) 22 % (24-48) Monocytes (%) (Auto) 11 % (0-9) Eosinophils (%) (Auto) 6 % (0-3) Basophils (%) (Auto) 0 % (0-3) Neutrophils # (Auto) 4.3 x10^3uL (1.8-7.7) Lymphocytes # (Auto) 1.5 x10^3/uL (1.0-4.8) Monocytes # (Auto) 0.8 x10^3/uL (0.0-1.1) Eosinophils # (Auto) 0.4 x10^3/uL (0.0-0.7) Basophils # (Auto) 0.0 x10^3/uL (0.0-0.2) Sodium Level 141 mmol/L (136-145) Potassium Level 3.2 mmol/L (3.5-5.1) Chloride Level 105 mmol/L (98-107) Carbon Dioxide Level 30 mmol/L (21-32) Anion Gap 6 (6-14) Blood Urea Nitrogen 12 mg/dL (7-20) Creatinine 0.9 mg/dL (0.6-1.0) Estimated GFR (Cockcroft-Gault) 73.9 Glucose Level 97 mg/dL (70-99) Calcium Level 8.5 mg/dL (8.5-10.1) Medications Current Medications Propofol 20 ml @ As Directed STK-MED ONCE IV ; Start 09/12/16 at 13:36; Stop at 13:37; Status DC Propofol 50 ml @ As Directed STK-MED ONCE IV ; Start 09/12/16 at 13:47; Stop at 13:48; Status DC Propofol 100 ml @ 0 mls/hr CONT PRN IV PER PROTOCOL Last administered on 07:31; Start 09/12/16 at 14:00 Chlorhexidine Gluconate (Peridex) 15 ml BID MM Last administered on 09/13/16 09:00; Start 09/12/16 at 14:00 Propofol 50 ml @ As Directed STK-MED ONCE IV ; Start 09/12/16 at 16:07; Stop at 16:08; Status DC Amlodipine Besylate (Norvasc) 2.5 mg DAILY PO Last administered on 09/13/16 09 :52; Start 09/13/16 at 09:00 Buspirone HCl (Buspar) 5 mg DAILY PO Last administered on 09/13/16 09:52; Start 09/13/16 at 09:00 Citalopram Hydrobromide (CeleXA) 20 mg DAILY PO Last administered on 09/13/16 09:51; Start 09/13/16 at 09:00 Furosemide (Lasix) 20 mg BID92 PO ; Start 09/13/16 at 09:00 Non-Formulary Medication 40 mg DAILY PO ; Start 09/13/16 at 09:00; Stop at 09:00; Status DC Potassium Chloride (Klor-Con) 10 meq [id number] PO ; Start 09/13/16 at 08:00 Ondansetron HCl (Zofran) 4 mg PRN Q8HRS PRN IV NAUSEA/VOMITING; Start 09/12/16 at 16:15; Stop 09/13/16 at 16:14 Acetaminophen (Tylenol) 650 mg PRN Q6HRS PRN PO FEVER; Start 09/12/16 at 16:30 ; Stop 09/12/16 at 16:30; Status DC Ondansetron HCl (Zofran) 4 mg PRN Q6HRS PRN IV NAUSEA/VOMITING; Start 09/12/16 at 16:30 Morphine Sulfate 2 mg PRN Q2HR PRN IV PAIN; Start 09/12/16 at 16:30 Tramadol HCl (Ultram) 50 mg PRN Q6HRS PRN PO PAIN; Start 09/12/16 at 16:30 Hydralazine HCl (Apresoline) 10 mg PRN Q4HRS PRN IVP ELEVATED BP, SEE COMMENTS Last administered on 09/13/16 11:08; Start 09/12/16 at 16:30 Docusate Sodium (Colace) 100 mg PRN DAILY PRN PO CONSTIPATION; Start 09/12/16 at 16:30 Enoxaparin Sodium (Lovenox 40mg Syringe) 40 mg DAILY SQ Last administered on 09:56; Start 09/13/16 at 09:00 Potassium Chloride/Dextrose/ Sod Cl 1,000 ml @ 75 mls/hr 1X ONCE IV Last administered on 09/12/16 18:25; Start 09/12/16 at 16:30; Stop 09/13/16 at 05:49 ; Status DC Acetaminophen (Tylenol) 650 mg PRN Q6HRS PRN PO FEVER; Start 09/12/16 at 16:30 Propofol (Diprivan) 100 mg 1X ONCE IV Last administered on 09/12/16 13:39; Start 09/12/16 at 18:00; Stop 09/12/16 at 18:01; Status DC Vecuronium [place] (Norcuron Bolus) 10 mg 1X ONCE IV Last administered on 09/12 13:38; Start 09/12/16 at 18:00; Stop 09/12/16 at 18:01; Status DC Famotidine (Pepcid) 20 mg QHS IVP Last administered on 09/12/16 20:31; Start 09/12/16 at 21:00 Active Scripts Active Reported Trazodone Hcl 300 Mg Tablet 1 Tab PO QHS Furosemide 20 Mg Tablet 1 Tab PO DAILY PRN Potassium Chloride 20 Meq Tablet.er 20 Meq PO DAILY Proair Hfa Inhaler (Albuterol Sulfate) 8.5 Gm Hfa.aer.ad 1-2 Puff INH PRN Q4HRS PRN Semprex-D 8 Mg-60 Mg Capsule (Pseudoephedrine Hcl/Acrivas) 1 Each Capsule 1 Cap PO Q6HRS PRN Carvedilol 6.25 Mg Tablet 1 Tab PO BID Senokot-S Tablet (Sennosides/Docusate Sodium) 1 Each Tablet 1 Tab PO BID PRN [place] 5-325 Tablet (Acetaminophen/Hydrocodone Bitart) 1 Each Tablet 1-2 Tab PO TID PRN PRN Ambien (Zolpidem Tartrate) 5 Mg Tablet 1 Tab PO QHS Alprazolam 0.5 Mg Tablet 1 Tab PO BID PRN Celexa (Citalopram Hydrobromide) 20 Mg Tablet 20 Mg PO DAILY Nexium Capsule (Esomeprazole Magnesium) 40 Mg Capsule.dr 40 Mg PO DAILY FENTANYL 50mcg/hr (Fentanyl) 1 Each Patch.td72 1 Each TD Q3DAYS Zostavax Vial (Zoster Vaccine Live/Pf) 19,400 Unit Vial 19,400 Unit SQ Pravastatin Sodium 80 Mg Tablet 80 Mg PO DAILY Vitals/I & O Vital Sign - Last 24 Hours 09/12/16 09/12/16 09/12/16 09/12/16 13:28 13:31 13:32 13:37 Temp 100.4 100.4 Pulse 88 79 86 84 Resp 12 21 B/P (MAP) 197/121 (146) 184/79 (114) 181/77 (111) 178/83 (114) Pulse Ox 98 97 97 100 O2 Delivery Room Air Bag Valve Mask Bag Valve Mask Bag Valve Mask 09/12/16 09/12/16 09/12/16 09/12/16 13:40 13:42 13:44 13:47 Pulse 107 99 90 80 Resp 20 18 16 16 B/P (MAP) 209/94 (132) 188/86 (120) 165/69 (101) 155/73 (100) Pulse Ox 100 100 100 O2 Delivery Bag Valve Mask Bag Valve Mask Bag Valve Mask Ventilator 09/12/16 09/12/16 09/12/16 09/12/16 13:48 13:50 13:55 14:00 Pulse 82 88 78 Resp 17 15 B/P (MAP) 163/75 (104) 175/81 (112) 184/77 (112) Pulse Ox 100 100 100 100 O2 Delivery Ventilator Ventilator Ventilator Ventilator 09/12/16 09/12/16 09/12/16 09/12/16 14:02 14:17 14:20 14:25 Pulse 73 85 83 81 Resp 16 15 16 16 B/P (MAP) 186/74 (111) 176/79 (111) 161/65 (97) 176/77 (110) Pulse Ox 100 100 100 100 O2 Delivery Ventilator Ventilator Ventilator Ventilator 09/12/16 09/12/16 09/12/16 09/12/16 14:31 14:35 14:40 14:50 Pulse 82 73 76 112 Resp 18 16 17 20 B/P (MAP) 181/81 (114) 162/73 (102) 159/74 (102) 222/98 (139) Pulse Ox 100 100 100 100 O2 Delivery Ventilator Ventilator Ventilator Ventilator 09/12/16 09/12/16 09/12/16 09/12/16 15:00 15:10 15:20 15:30 Pulse 97 102 76 87 Resp 18 15 17 B/P (MAP) 203/89 (127) 166/103 (124) 132/66 (88) 167/79 (108) Pulse Ox 100 100 100 100 O2 Delivery Ventilator Ventilator Ventilator Ventilator 09/12/16 09/12/16 09/12/16 09/12/16 15:31 15:35 15:40 15:50 Pulse 89 76 76 Resp 19 19 B/P (MAP) 151/68 (95) 161/63 (95) 156/69 (98) Pulse Ox 100 100 100 100 O2 Delivery Ventilator Ventilator Ventilator Ventilator 09/12/16 09/12/16 09/12/16 09/12/16 16:00 16:02 16:10 16:20 Temp 100.1 100.1 Pulse 74 71 68 Resp 15 15 15 B/P (MAP) 127/76 (93) 133/63 (86) 134/65 (88) Pulse Ox 100 100 100 O2 Delivery Ventilator Ventilator Ventilator 09/12/16 09/12/16 09/12/16 09/12/16 16:30 16:40 16:50 17:00 Pulse 69 68 68 69 Resp 16 16 15 15 B/P (MAP) 135/69 (91) 135/67 (89) 136/67 (90) 158/71 (100) Pulse Ox 100 100 100 100 O2 Delivery Room Air Ventilator Ventilator Ventilator 09/12/16 09/12/16 09/12/16 09/12/16 17:05 17:08 17:48 17:52 Temp 98.6 98.6 Pulse 61 60 62 Resp 16 12 12 B/P (MAP) 141/69 (93) 139/67 (91) 123/60 (81) Pulse Ox 100 100 100 100 O2 Delivery Ventilator Ventilator Ventilator Ventilator 09/12/16 09/12/16 09/12/16 09/12/16 18:58 19:00 19:40 20:00 Temp 99.5 99.5 Pulse 58 55 Resp 12 16 B/P (MAP) 113/56 (75) 119/57 (77) Pulse Ox 100 100 100 O2 Delivery Mechanical Ventilator Ventilator Ventilator Ventilator 09/12/16 09/12/16 09/12/16 09/12/16 21:00 21:33 22:00 23:00 Pulse 56 52 54 Resp 16 16 16 B/P (MAP) 126/57 (80) 121/57 (78) 132/66 (88) Pulse Ox 100 100 100 100 O2 Delivery Ventilator Ventilator Ventilator Ventilator 09/12/16 09/13/16 09/13/16 09/13/16 23:03 00:00 01:00 01:05 Temp 99.2 99.2 Pulse 54 54 Resp 16 16 B/P (MAP) 126/62 (83) 132/56 (81) Pulse Ox 100 100 100 100 O2 Delivery Ventilator Ventilator Ventilator Ventilator 09/13/16 09/13/16 09/13/16 09/13/16 02:00 03:00 03:02 04:00 Temp 98.6 98.6 Pulse 54 53 65 Resp 16 16 23 B/P (MAP) 134/60 (84) 127/64 (85) 133/65 (87) Pulse Ox 100 100 100 100 O2 Delivery Ventilator Ventilator Ventilator Ventilator 09/13/16 09/13/16 09/13/16 09/13/16 05:00 05:15 06:00 07:47 Pulse 53 52 Resp 17 B/P (MAP) 152/71 (98) 132/67 (88) Pulse Ox 100 100 100 100 O2 Delivery Ventilator Ventilator Ventilator Ventilator 09/13/16 09/13/16 09/13/16 09:02 09:52 11:08 Pulse 47 68 B/P (MAP) 160/69 198/80 Pulse Ox 100 O2 Delivery Ventilator Intake and Output 09/12/16 09/12/16 09/13/16 15:00 23:00 07:00 Intake Total 968 ml Output Total 872 ml 736 ml Balance -872 ml 232 ml ALVARO LEE MD Sep 13, 2016 11:51
[2016-09-13] MEDS: CARVEDILOL 6.25 MG TABLET. PO SCH ×2 (12:00→17:00)
[2016-09-13] MEDS: POTASSIUM CHLORIDE 20 MEQ TABLET.ER. PO SCH (12:00)
[2016-09-13] MEDS ORDERED: SENNOSIDES/DOCUSATE 8.6/50MG TABLET. PO PRN (12:00)
[2016-09-13] MEDS: LABETALOL 20 MG/4 ML DISP.SYRIN. IVP PRN (12:20)
[2016-09-13] MEDS: POTASSIUM CHLORIDE 10MEQ 100 ML IV SCH ×4 (14:36→21:26)
[2016-09-13] MEDS ORDERED: ATORVASTATIN CALCIUM 20 MG TABLET PO SCH (21:00)
[2016-09-13] MEDS ORDERED: ZOLPIDEM 5 MG TABLET. PO SCH (21:00)
[2016-09-13] MEDS: FAMOTIDINE 20 MG/2 ML VIAL IVP SCH (21:27)
[2016-09-13] MEDS: ALBUTEROL SULFATE 2.5 MG/3 ML NEBU. NEB PRN (22:25)
[2016-09-14] VITALS (17 sets, daily range): BP systolic 136–203; BP diastolic 73–123
[2016-09-14] MEDS: hydrALAZINE 20 MG/ML VIAL. IVP PRN ×2 (02:08→14:38)
[2016-09-14] MEDS: ALBUTEROL SULFATE 2.5 MG/3 ML NEBU. NEB PRN ×4 (04:16→16:55)
[2016-09-14] MEDS: CARVEDILOL 6.25 MG TABLET. PO SCH ×2 (08:00→16:16)
[2016-09-14] MEDS: POTASSIUM CHLORIDE 20 MEQ TABLET.ER. PO SCH (08:00)
[2016-09-14] MEDS: LABETALOL 20 MG/4 ML DISP.SYRIN. IVP PRN (08:06)
[2016-09-14] MEDS ORDERED: FUROSEMIDE 20 MG TABLET PO SCH (09:00)
[2016-09-14] MEDS: CITALOPRAM 20 MG TABLET. PO SCH (09:00)
[2016-09-14] MEDS: busPIRone 5 MG TABLET. PO SCH (09:00)
[2016-09-14] MEDS: amLODIPine BESYLATE 2.5 MG TABLET PO SCH (09:00)
--- NOTE | 2016-09-14 10:08 | PDOC ---
PULMONARY PROGRESS NOTES Subjective extubated 09/13 doing well Vitals Vital Signs Date Time Temp Pulse Resp B/P (MAP) Pulse Ox O2 Delivery O2 Flow Rate FiO2 09/14/16 09:21 98.8 74 16 172/85 (114) 100 Nasal Cannula 2.0 98.8 General: Alert, No acute distress Lungs: Clear Cardiovascular: S1 Abdomen: Soft Neuro Exam: Alert Extremities: Other (TRACE EDEMA) Labs Laboratory Tests Test 09/12/16 13:42 09/12/16 13:45 09/12/16 14:35 09/12/16 20:59 O2 Saturation 98 % (92-99) Arterial Blood pH 7.46 (7.35-7.45) Arterial Blood pCO2 at Patient Temp 38 mmHg (35-46) Arterial Blood pO2 at Patient Temp 116 mmHg (65-108) Arterial Blood HCO3 27 mmol/L (21-28) Arterial Blood Base Excess 3 mmol/L (-3-3) FiO2 40 Urine Collection Type Unknown Urine Color Yellow Urine Clarity Clear Urine pH 6.0 Urine Specific [place] 1.020 Urine Protein Negative mg/dL (NEG-TRACE) Urine Glucose (UA) Negative mg/dL (NEG) Urine Ketones (Stick) Trace mg/dL (NEG) Urine Blood Negative (NEG) Urine Nitrite Negative (NEG) Urine Bilirubin Negative (NEG) Urine Urobilinogen Dipstick 0.2 mg/dL (0.2 mg/dL) Urine Leukocyte Esterase Negative (NEG) Urine RBC 0 /HPF (0-2) Urine WBC 0 /HPF (0-4) Urine Squamous Epithelial Cells None /LPF Urine Bacteria 0 /HPF (0-FEW) Urine Mucus Slight /LPF Urine Opiates Screen Pos (NEG) Urine Methadone Screen Neg (NEG) Urine Barbiturates Neg (NEG) Urine Phencyclidine Screen Neg (NEG) Urine Amphetamine/Methamphetamine Neg (NEG) Urine Benzodiazepines Screen Pos (NEG) Urine Cocaine Screen Neg (NEG) Urine Cannabinoids Screen Pos (NEG) Urine Ethyl Alcohol Neg (NEG) White Blood Count 8.9 x10^3/uL (4.0-11.0) Red Blood Count 4.05 x10^6/uL (3.50-5.40) Hemoglobin 13.0 g/dL (12.0-15.5) Hematocrit 38.9 % (36.0-47.0) Mean Corpuscular Volume 96 fL (79-100) Mean Corpuscular Hemoglobin 32 pg (25-35) Mean Corpuscular Hemoglobin Concent 33 g/dL (31-37) Red Cell Distribution Width 15.3 % (11.5-14.5) Platelet Count 173 x10^3/uL (140-400) Neutrophils (%) (Auto) 78 % (31-73) Lymphocytes (%) (Auto) 12 % (24-48) Monocytes (%) (Auto) 7 % (0-9) Eosinophils (%) (Auto) 3 % (0-3) Basophils (%) (Auto) 0 % (0-3) Neutrophils # (Auto) 6.9 x10^3uL (1.8-7.7) Lymphocytes # (Auto) 1.1 x10^3/uL (1.0-4.8) Monocytes # (Auto) 0.6 x10^3/uL (0.0-1.1) Eosinophils # (Auto) 0.2 x10^3/uL (0.0-0.7) Basophils # (Auto) 0.0 x10^3/uL (0.0-0.2) Sodium Level 142 mmol/L (136-145) Potassium Level 3.6 mmol/L (3.5-5.1) Chloride Level 103 mmol/L (98-107) Carbon Dioxide Level 29 mmol/L (21-32) Anion Gap 10 (6-14) Blood Urea Nitrogen 13 mg/dL (7-20) Creatinine 0.7 mg/dL (0.6-1.0) Estimated GFR (Cockcroft-Gault) 98.7 BUN/Creatinine Ratio 19 (6-20) Glucose Level 101 mg/dL (70-99) Calcium Level 8.8 mg/dL (8.5-10.1) Total Bilirubin 0.5 mg/dL (0.2-1.0) Aspartate Amino Transf (AST/SGOT) 28 U/L (15-37) Alanine Aminotransferase (ALT/SGPT) 18 U/L (14-59) Alkaline Phosphatase 83 U/L (46-116) Troponin I Quantitative 0.086 ng/mL (0.000-0.055) HL-Wis-K-Type Natriuretic Peptide 636 pg/mL (0-449) Total Protein 6.9 g/dL (6.4-8.2) Albumin 3.4 g/dL (3.4-5.0) Albumin/Globulin Ratio 1.0 (1.0-1.7) Salicylates Level < 2.8 mg/dL (2.8-20.0) Salicylate Last Dose Date Unknown Salicylate Last Dose Time Unknown Acetaminophen Level < 2 mcg/ml (10-30) Acetaminophen Last Dose Date Unknown Acetaminophen Last Dose Time Unknown Ethyl Alcohol Level < 10 mg/dL (0-10) Nasal Screen MRSA (PCR) Negative (Negative) Test 09/13/16 08:00 09/13/16 08:20 09/13/16 11:15 O2 Saturation 98 % (92-99) 99 % (92-99) Arterial Blood pH 7.57 (7.35-7.45) 7.67 (7.35-7.45) Arterial Blood pCO2 at Patient Temp 28 mmHg (35-46) 21 mmHg (35-46) Arterial Blood pO2 at Patient Temp 129 mmHg (65-108) 147 mmHg (65-108) Arterial Blood HCO3 25 mmol/L (21-28) 24 mmol/L (21-28) Arterial Blood Base Excess 3 mmol/L (-3-3) 5 mmol/L (-3-3) FiO2 40 40 White Blood Count 7.0 x10^3/uL (4.0-11.0) Red Blood Count 3.24 x10^6/uL (3.50-5.40) Hemoglobin 10.5 g/dL (12.0-15.5) Hematocrit 30.1 % (36.0-47.0) Mean Corpuscular Volume 93 fL (79-100) Mean Corpuscular Hemoglobin 32 pg (25-35) Mean Corpuscular Hemoglobin Concent 35 g/dL (31-37) Red Cell Distribution Width 14.9 % (11.5-14.5) Platelet Count 153 x10^3/uL (140-400) Neutrophils (%) (Auto) 61 % (31-73) Lymphocytes (%) (Auto) 22 % (24-48) Monocytes (%) (Auto) 11 % (0-9) Eosinophils (%) (Auto) 6 % (0-3) Basophils (%) (Auto) 0 % (0-3) Neutrophils # (Auto) 4.3 x10^3uL (1.8-7.7) Lymphocytes # (Auto) 1.5 x10^3/uL (1.0-4.8) Monocytes # (Auto) 0.8 x10^3/uL (0.0-1.1) Eosinophils # (Auto) 0.4 x10^3/uL (0.0-0.7) Basophils # (Auto) 0.0 x10^3/uL (0.0-0.2) Sodium Level 141 mmol/L (136-145) Potassium Level 3.2 mmol/L (3.5-5.1) Chloride Level 105 mmol/L (98-107) Carbon Dioxide Level 30 mmol/L (21-32) Anion Gap 6 (6-14) Blood Urea Nitrogen 12 mg/dL (7-20) Creatinine 0.9 mg/dL (0.6-1.0) Estimated GFR (Cockcroft-Gault) 73.9 Glucose Level 97 mg/dL (70-99) Calcium Level 8.5 mg/dL (8.5-10.1) Laboratory Tests Test 09/13/16 11:15 O2 Saturation 99 % (92-99) Arterial Blood pH 7.67 (7.35-7.45) Arterial Blood pCO2 at Patient Temp 21 mmHg (35-46) Arterial Blood pO2 at Patient Temp 147 mmHg (65-108) Arterial Blood HCO3 24 mmol/L (21-28) Arterial Blood Base Excess 5 mmol/L (-3-3) FiO2 40 Medications Active Scripts Medications Dose Route/Sig Max Daily Dose Days Date Category Trazodone Hcl 300 Mg Tablet 1 Tab PO QHS 09/13/16 Reported Furosemide 20 Mg Tablet 1 Tab PO DAILY PRN 09/13/16 Reported Potassium Chloride 20 Meq Tablet.er 20 Meq PO DAILY 09/13/16 Reported Proair Hfa Inhaler (Albuterol Sulfate) 8.5 Gm Hfa.aer.ad 1-2 Puff INH PRN Q4HRS PRN 09/13/16 Reported Semprex-D 8 Mg-60 Mg Capsule (Pseudoephedrine Hcl/Acrivas) 1 Each Capsule 1 Cap PO Q6HRS PRN 09/13/16 Reported Carvedilol 6.25 Mg Tablet 1 Tab PO BID 09/13/16 Reported Senokot-S Tablet (Sennosides/Docusate Sodium) 1 Each Tablet 1 Tab PO BID PRN 09/13/16 Reported [place] 5-325 Tablet (Acetaminophen/Hydrocodone Bitart) 1 Each Tablet 1-2 Tab PO TID PRN PRN 09/13/16 Reported Ambien (Zolpidem Tartrate) 5 Mg Tablet 1 Tab PO QHS 09/13/16 Reported Alprazolam 0.5 Mg Tablet 1 Tab PO BID PRN 09/13/16 Reported Celexa (Citalopram Hydrobromide) 20 Mg Tablet 20 Mg PO DAILY 03/20/13 Reported Nexium Capsule (Esomeprazole Magnesium) 40 Mg Capsule.dr 40 Mg PO DAILY 03/20/13 Reported FENTANYL 50mcg/hr (Fentanyl) 1 Each Patch.td72 1 Each TD Q3DAYS 03/20/13 Reported Zostavax Vial (Zoster Vaccine Live/Pf) 19,400 Unit Vial 19,400 Unit SQ 03/20/13 Reported Pravastatin Sodium 80 Mg Tablet 80 Mg PO DAILY 03/20/13 Reported Impression . ACUTE RESP FAILURE SEC TO OD ON FENTANYL CHRONIC PAIN SYNDROME TOXIC ENCEPHALOPATHY POA, RESOLVED COPD FEVER COULD BE RELATED TO OD CXR IS CLEAR, RESOLVED FEVER Plan . EXTUBATED 09/13 DOING WELL NASAL CANULA MANAGEMENT OF BP PER PCP D/W RN AND PCP TRANSFER TO FLOOR JOLLY GOULD MD Sep 14, 2016 10:08
[2016-09-14 10:34] LABS: BASO % 0 % (0-3); EOS % 0 % (0-3); HEMATOCRIT 39.8 % (36.0-47.0); HEMOGLOBIN 13.7 g/dL (12.0-15.5); LYMPH # 0.9 x10^3/uL (1.0-4.8); LYMPH % 7 % (24-48); MEAN CORPUSCULAR HEMOGLOBIN 32 pg (25-35); MEAN CORPUSCULAR HGB CONC 35 g/dL (31-37); MEAN CORPUSCULAR VOLUME 94 fL (79-100); MONO % 5 % (0-9); NEUT % 88 % (31-73); PLATELET COUNT 211 x10^3/uL (140-400); RED BLOOD COUNT 4.26 x10^6/uL (3.50-5.40); RED CELL DISTRIBUTION WIDTH 14.8 % (11.5-14.5); WHITE BLOOD COUNT 13.4 x10^3/uL (4.0-11.0)
[2016-09-14 10:56] LABS: ALBUMIN 3.8 g/dL (3.4-5.0); ALBUMIN/GLOBULIN RATIO 0.8 (1.0-1.7); CALCIUM 9.5 mg/dL (8.5-10.1); CREATININE 0.6 mg/dL (0.6-1.0); GFR 117.9; TOTAL BILIRUBIN 0.8 mg/dL (0.2-1.0); TOTAL PROTEIN 8.3 g/dL (6.4-8.2)
[2016-09-14 11:00] LABS: POTASSIUM 4.9 mmol/L (3.5-5.1)
[2016-09-14] MEDS: ENOXAPARIN 40 MG/0.4 ML SYRINGE. SQ SCH (11:09)
[2016-09-14 11:59] LABS: PLT ESTIMATE ADEQUATE (ADEQUATE)
[2016-09-14 12:00] LABS: OVALOCYTES FEW; POLYCHROMASIA SLIGHT
--- NOTE | 2016-09-14 12:13 | PDOC ---
PROGRESS NOTES Chief Complaint Chief Complaint AMS Opioid O/D ASSESSMENT AND PLAN: 1. Toxic encephalopathy: 2/2 fentanyl OD. resolved 2. Acute resp failure: required intubation at presentation. 2/2 opioid OD. extubated successfully yesterday. has thick sputum today: obtain CXR and sputum culture. empiric azithro 3. Chronic shoulder/back and abd pain: on multiple pain meds, incl fentanyl. [place] PRN. hold fentanyl. currently moving w/o difficulties, no pain c/o 4. Fentanyl OD: suspicious for intentional OD with triple patches on skin, 1 in mouth when found. PAT team eval done, felt to be accidental O/D 5. Hx benzo W/D: admitted 3 yrs ago. remains no trazodone 300 and ambien at home. hold ambien 6. Drug abuse: marijuana 7. Dementia 8. HTN, HLD: no acute issues; cont home meds 9. Hx uterus/cervical Ca post sx 10. Recent hx urinary incontinence: F/U with urology on O/P basis 11. Prophylaxis: lovenox, H2B 12. Dispo: to med floor History of Present Illness History of Present Illness feels her breathing is labored. had productive cough. no c/o of pain Vitals Vitals Vital Signs Date Time Temp Pulse Resp B/P (MAP) Pulse Ox O2 Delivery O2 Flow Rate FiO2 09/14/16 11:33 100 Nasal Cannula 2.0 09/14/16 11:07 98.6 82 16 171/83 (112) 98.6 Physical Exam General: Alert, Oriented X3, Cooperative, No acute distress Heart: Regular rate Lungs: Clear Abdomen: Normal bowel sounds, Soft, No tenderness Extremities: No edema Skin: No rashes Labs LABS Laboratory Tests Test 09/14/16 10:00 09/14/16 10:10 White Blood Count 13.4 x10^3/uL (4.0-11.0) Red Blood Count 4.26 x10^6/uL (3.50-5.40) Hemoglobin 13.7 g/dL (12.0-15.5) Hematocrit 39.8 % (36.0-47.0) Mean Corpuscular Volume 94 fL (79-100) Mean Corpuscular Hemoglobin 32 pg (25-35) Mean Corpuscular Hemoglobin Concent 35 g/dL (31-37) Red Cell Distribution Width 14.8 % (11.5-14.5) Platelet Count 211 x10^3/uL (140-400) Neutrophils (%) (Auto) 88 % (31-73) Lymphocytes (%) (Auto) 7 % (24-48) Monocytes (%) (Auto) 5 % (0-9) Eosinophils (%) (Auto) 0 % (0-3) Basophils (%) (Auto) 0 % (0-3) Neutrophils # (Auto) 11.8 x10^3uL (1.8-7.7) Lymphocytes # (Auto) 0.9 x10^3/uL (1.0-4.8) Monocytes # (Auto) 0.6 x10^3/uL (0.0-1.1) Eosinophils # (Auto) 0.0 x10^3/uL (0.0-0.7) Basophils # (Auto) 0.0 x10^3/uL (0.0-0.2) Segmented Neutrophils % 79 % (35-66) Band Neutrophils % 7 % (0-9) Lymphocytes % 9 % (24-48) Monocytes % 5 % (0-10) Platelet Estimate Adequate (ADEQUATE) Polychromasia Slight Ovalocytes Few Sodium Level 141 mmol/L (136-145) Potassium Level 4.9 mmol/L (3.5-5.1) Chloride Level 102 mmol/L (98-107) Carbon Dioxide Level 27 mmol/L (21-32) Anion Gap 12 (6-14) Blood Urea Nitrogen 10 mg/dL (7-20) Creatinine 0.6 mg/dL (0.6-1.0) Estimated GFR (Cockcroft-Gault) 117.9 BUN/Creatinine Ratio 17 (6-20) Glucose Level 129 mg/dL (70-99) Calcium Level 9.5 mg/dL (8.5-10.1) Total Bilirubin 0.8 mg/dL (0.2-1.0) Aspartate Amino Transf (AST/SGOT) 44 U/L (15-37) Alanine Aminotransferase (ALT/SGPT) 20 U/L (14-59) Alkaline Phosphatase 91 U/L (46-116) Total Protein 8.3 g/dL (6.4-8.2) Albumin 3.8 g/dL (3.4-5.0) Albumin/Globulin Ratio 0.8 (1.0-1.7) Magnesium Level 1.9 mg/dL (1.8-2.4) ALVARO LEE MD Sep 14, 2016 12:13
[2016-09-14] MEDS ORDERED: AZITHROMYCIN 250 MG TABLET. PO SCH (13:00)
[2016-09-14] MEDS ORDERED: LABETALOL 20 MG/4 ML DISP.SYRIN. IVP PRN (16:30)
[2016-09-14] MEDS: FUROSEMIDE 20 MG/2 ML VIAL. IVP SCH (16:43)
[2016-09-14] MEDS: MORPHINE SULFATE 2 MG/ML DISP.SYRIN. IV PRN ×2 (16:43→23:29)
[2016-09-14] MEDS ORDERED: AZITHROMYCIN 500 MG in IV NORMAL SALINE 250ML 250 ML IV SCH (17:00)
[2016-09-14] MEDS: ONDANSETRON PF 4 MG/2 ML VIAL. IV PRN ×2 (17:10→23:30)
[2016-09-14] MEDS: FAMOTIDINE 20 MG/2 ML VIAL IVP SCH (21:00)
[2016-09-15 03:30] VITALS: BP 157/71
[2016-09-15 04:44] LABS: HEMATOCRIT 37.4 % (36.0-47.0); HEMOGLOBIN 12.5 g/dL (12.0-15.5); RED BLOOD COUNT 3.96 x10^6/uL (3.50-5.40); RED CELL DISTRIBUTION WIDTH 14.9 % (11.5-14.5); WHITE BLOOD COUNT 13.2 x10^3/uL (4.0-11.0)
[2016-09-15 05:10] LABS: GFR 65.4
[2016-09-15] MEDS: ONDANSETRON PF 4 MG/2 ML VIAL. IV PRN ×2 (05:29→09:07)
[2016-09-15] MEDS: MORPHINE SULFATE 2 MG/ML DISP.SYRIN. IV PRN (05:30)
[2016-09-15 07:00] VITALS: BP 147/69
--- NOTE | 2016-09-15 08:12 | RAD ---
2 view CXR: Clinical indications: Productive cough. Comparison: September 12, 2016. Findings: The ET tube and NG tube have been removed. No acute lung infiltrate or pleural effusion or pulmonary edema or lung mass or pneumothorax is seen. The heart size, pulmonary vasculature, mediastinum and both more are unremarkable. The osseous structures appear intact. Small punctate radiopacities of the posterior right lower chest or upper right posterior abdomen are again noted. Impression: No acute radiographic abnormality is seen.
[2016-09-15] MEDS: ENOXAPARIN 40 MG/0.4 ML SYRINGE. SQ SCH (09:06)
[2016-09-15] MEDS: FUROSEMIDE 20 MG/2 ML VIAL. IVP SCH (09:07)
--- NOTE | 2016-09-15 10:00 | PDOC ---
PULMONARY PROGRESS NOTES Subjective extubated 09/13 doing well Vitals Vital Signs Date Time Temp Pulse Resp B/P (MAP) Pulse Ox O2 Delivery O2 Flow Rate FiO2 09/15/16 08:00 Nasal Cannula 2.0 09/15/16 07:00 98.7 76 18 147/69 (95) 100 98.7 General: Alert, No acute distress Lungs: Clear Cardiovascular: S1 Abdomen: Soft Neuro Exam: Alert Extremities: Other (TRACE EDEMA) Labs Laboratory Tests Test 09/13/16 11:15 09/14/16 10:00 09/14/16 10:10 09/15/16 04:16 O2 Saturation 99 % (92-99) Arterial Blood pH 7.67 (7.35-7.45) Arterial Blood pCO2 at Patient Temp 21 mmHg (35-46) Arterial Blood pO2 at Patient Temp 147 mmHg (65-108) Arterial Blood HCO3 24 mmol/L (21-28) Arterial Blood Base Excess 5 mmol/L (-3-3) FiO2 40 White Blood Count 13.4 x10^3/uL (4.0-11.0) 13.2 x10^3/uL (4.0-11.0) Red Blood Count 4.26 x10^6/uL (3.50-5.40) 3.96 x10^6/uL (3.50-5.40) Hemoglobin 13.7 g/dL (12.0-15.5) 12.5 g/dL (12.0-15.5) Hematocrit 39.8 % (36.0-47.0) 37.4 % (36.0-47.0) Mean Corpuscular Volume 94 fL (79-100) 94 fL (79-100) Mean Corpuscular Hemoglobin 32 pg (25-35) 32 pg (25-35) Mean Corpuscular Hemoglobin Concent 35 g/dL (31-37) 34 g/dL (31-37) Red Cell Distribution Width 14.8 % (11.5-14.5) 14.9 % (11.5-14.5) Platelet Count 211 x10^3/uL (140-400) 209 x10^3/uL (140-400) Neutrophils (%) (Auto) 88 % (31-73) Lymphocytes (%) (Auto) 7 % (24-48) Monocytes (%) (Auto) 5 % (0-9) Eosinophils (%) (Auto) 0 % (0-3) Basophils (%) (Auto) 0 % (0-3) Neutrophils # (Auto) 11.8 x10^3uL (1.8-7.7) Lymphocytes # (Auto) 0.9 x10^3/uL (1.0-4.8) Monocytes # (Auto) 0.6 x10^3/uL (0.0-1.1) Eosinophils # (Auto) 0.0 x10^3/uL (0.0-0.7) Basophils # (Auto) 0.0 x10^3/uL (0.0-0.2) Segmented Neutrophils % 79 % (35-66) Band Neutrophils % 7 % (0-9) Lymphocytes % 9 % (24-48) Monocytes % 5 % (0-10) Platelet Estimate Adequate (ADEQUATE) Polychromasia Slight Ovalocytes Few Sodium Level 141 mmol/L (136-145) 143 mmol/L (136-145) Potassium Level 4.9 mmol/L (3.5-5.1) 3.0 mmol/L (3.5-5.1) Chloride Level 102 mmol/L (98-107) 103 mmol/L (98-107) Carbon Dioxide Level 27 mmol/L (21-32) 31 mmol/L (21-32) Anion Gap 12 (6-14) 9 (6-14) Blood Urea Nitrogen 10 mg/dL (7-20) 15 mg/dL (7-20) Creatinine 0.6 mg/dL (0.6-1.0) 1.0 mg/dL (0.6-1.0) Estimated GFR (Cockcroft-Gault) 117.9 65.4 BUN/Creatinine Ratio 17 (6-20) Glucose Level 129 mg/dL (70-99) 98 mg/dL (70-99) Calcium Level 9.5 mg/dL (8.5-10.1) 10.0 mg/dL (8.5-10.1) Total Bilirubin 0.8 mg/dL (0.2-1.0) Aspartate Amino Transf (AST/SGOT) 44 U/L (15-37) Alanine Aminotransferase (ALT/SGPT) 20 U/L (14-59) Alkaline Phosphatase 91 U/L (46-116) Total Protein 8.3 g/dL (6.4-8.2) Albumin 3.8 g/dL (3.4-5.0) Albumin/Globulin Ratio 0.8 (1.0-1.7) Magnesium Level 1.9 mg/dL (1.8-2.4) Laboratory Tests Test 09/14/16 10:00 09/14/16 10:10 09/15/16 04:16 White Blood Count 13.4 x10^3/uL (4.0-11.0) 13.2 x10^3/uL (4.0-11.0) Red Blood Count 4.26 x10^6/uL (3.50-5.40) 3.96 x10^6/uL (3.50-5.40) Hemoglobin 13.7 g/dL (12.0-15.5) 12.5 g/dL (12.0-15.5) Hematocrit 39.8 % (36.0-47.0) 37.4 % (36.0-47.0) Mean Corpuscular Volume 94 fL (79-100) 94 fL (79-100) Mean Corpuscular Hemoglobin 32 pg (25-35) 32 pg (25-35) Mean Corpuscular Hemoglobin Concent 35 g/dL (31-37) 34 g/dL (31-37) Red Cell Distribution Width 14.8 % (11.5-14.5) 14.9 % (11.5-14.5) Platelet Count 211 x10^3/uL (140-400) 209 x10^3/uL (140-400) Neutrophils (%) (Auto) 88 % (31-73) Lymphocytes (%) (Auto) 7 % (24-48) Monocytes (%) (Auto) 5 % (0-9) Eosinophils (%) (Auto) 0 % (0-3) Basophils (%) (Auto) 0 % (0-3) Neutrophils # (Auto) 11.8 x10^3uL (1.8-7.7) Lymphocytes # (Auto) 0.9 x10^3/uL (1.0-4.8) Monocytes # (Auto) 0.6 x10^3/uL (0.0-1.1) Eosinophils # (Auto) 0.0 x10^3/uL (0.0-0.7) Basophils # (Auto) 0.0 x10^3/uL (0.0-0.2) Segmented Neutrophils % 79 % (35-66) Band Neutrophils % 7 % (0-9) Lymphocytes % 9 % (24-48) Monocytes % 5 % (0-10) Platelet Estimate Adequate (ADEQUATE) Polychromasia Slight Ovalocytes Few Sodium Level 141 mmol/L (136-145) 143 mmol/L (136-145) Potassium Level 4.9 mmol/L (3.5-5.1) 3.0 mmol/L (3.5-5.1) Chloride Level 102 mmol/L (98-107) 103 mmol/L (98-107) Carbon Dioxide Level 27 mmol/L (21-32) 31 mmol/L (21-32) Anion Gap 12 (6-14) 9 (6-14) Blood Urea Nitrogen 10 mg/dL (7-20) 15 mg/dL (7-20) Creatinine 0.6 mg/dL (0.6-1.0) 1.0 mg/dL (0.6-1.0) Estimated GFR (Cockcroft-Gault) 117.9 65.4 BUN/Creatinine Ratio 17 (6-20) Glucose Level 129 mg/dL (70-99) 98 mg/dL (70-99) Calcium Level 9.5 mg/dL (8.5-10.1) 10.0 mg/dL (8.5-10.1) Total Bilirubin 0.8 mg/dL (0.2-1.0) Aspartate Amino Transf (AST/SGOT) 44 U/L (15-37) Alanine Aminotransferase (ALT/SGPT) 20 U/L (14-59) Alkaline Phosphatase 91 U/L (46-116) Total Protein 8.3 g/dL (6.4-8.2) Albumin 3.8 g/dL (3.4-5.0) Albumin/Globulin Ratio 0.8 (1.0-1.7) Magnesium Level 1.9 mg/dL (1.8-2.4) Medications Active Scripts Medications Dose Route/Sig Max Daily Dose Days Date Category Trazodone Hcl 300 Mg Tablet 1 Tab PO QHS 09/13/16 Reported Furosemide 20 Mg Tablet 1 Tab PO DAILY PRN 09/13/16 Reported Potassium Chloride 20 Meq Tablet.er 20 Meq PO DAILY 09/13/16 Reported Proair Hfa Inhaler (Albuterol Sulfate) 8.5 Gm Hfa.aer.ad 1-2 Puff INH PRN Q4HRS PRN 09/13/16 Reported Semprex-D 8 Mg-60 Mg Capsule (Pseudoephedrine Hcl/Acrivas) 1 Each Capsule 1 Cap PO Q6HRS PRN 09/13/16 Reported Carvedilol 6.25 Mg Tablet 1 Tab PO BID 09/13/16 Reported Senokot-S Tablet (Sennosides/Docusate Sodium) 1 Each Tablet 1 Tab PO BID PRN 09/13/16 Reported [place] 5-325 Tablet (Acetaminophen/Hydrocodone Bitart) 1 Each Tablet 1-2 Tab PO TID PRN PRN 09/13/16 Reported Ambien (Zolpidem Tartrate) 5 Mg Tablet 1 Tab PO QHS 09/13/16 Reported Alprazolam 0.5 Mg Tablet 1 Tab PO BID PRN 09/13/16 Reported Celexa (Citalopram Hydrobromide) 20 Mg Tablet 20 Mg PO DAILY 03/20/13 Reported Nexium Capsule (Esomeprazole Magnesium) 40 Mg Capsule.dr 40 Mg PO DAILY 03/20/13 Reported FENTANYL 50mcg/hr (Fentanyl) 1 Each Patch.td72 1 Each TD Q3DAYS 03/20/13 Reported Zostavax Vial (Zoster Vaccine Live/Pf) 19,400 Unit Vial 19,400 Unit SQ 03/20/13 Reported Pravastatin Sodium 80 Mg Tablet 80 Mg PO DAILY 03/20/13 Reported Impression . ACUTE RESP FAILURE SEC TO OD ON FENTANYL CHRONIC PAIN SYNDROME TOXIC ENCEPHALOPATHY POA, RESOLVED COPD FEVER COULD BE RELATED TO OD CXR IS CLEAR, RESOLVED FEVER Plan . EXTUBATED 09/13 DOING WELL NASAL CANULA MANAGEMENT OF BP PER PCP D/W RN AND PCP DC PLANS PER PCP JOLLY GOULD MD Sep 15, 2016 10:00
[2016-09-15 10:59] VITALS: BP 146/69
[2016-09-15] MEDS ORDERED: POTASSIUM CHLORIDE 20MEQ 50 ML IV SCH (11:00)
[2016-09-15] MEDS ORDERED: BENZOCAINE/MENTHOL LOZENGE. PO PRN (11:00)
[2016-09-15] MEDS: POTASSIUM CHLORIDE 10MEQ 100 ML IV SCH ×3 (11:13→14:55)
[2016-09-15] MEDS: ALBUTEROL SULFATE 2.5 MG/3 ML NEBU. NEB PRN ×3 (11:36→20:03)
--- NOTE | 2016-09-15 12:56 | PDOC ---
PROGRESS NOTES Chief Complaint Chief Complaint AMS Opioid O/D ASSESSMENT AND PLAN: 1. Toxic encephalopathy: 2/2 fentanyl OD. resolved 2. Acute resp failure 3. Chronic shoulder/back and abd pain post h/o sx 4. Fentanyl OD 5. Hx benzo W/D: admitted 3 yrs ago. remains no trazodone 300 and ambien at home. hold ambien 6. Drug abuse: marijuana 7. Dementia 8. HTN, HLD 9. Hx uterus/cervical Ca post sx 10. Recent hx urinary incontinence: F/U with urology on O/P basis 11. dysphagia, post intubation plan: fu with pulm, stable waiting swallow eval daily, currently npo add ppn need iv access, picc line is ok if needed replete K labs tmr dvt, gi ppx on lasix iv daily, dc soon add cepacol lozenge. History of Present Illness History of Present Illness sore throat intubated for <24h dysphagia, failed swallow low K coughing with some clear sputum Vitals Vitals Vital Signs Date Time Temp Pulse Resp B/P (MAP) Pulse Ox O2 Delivery O2 Flow Rate FiO2 09/15/16 11:36 Nasal Cannula 2.0 09/15/16 10:59 98.9 69 18 146/69 (94) 100 98.9 Physical Exam General: Alert, Oriented X3, Cooperative, No acute distress Heart: Regular rate Lungs: Clear Abdomen: Normal bowel sounds, Soft, No tenderness Extremities: No edema Skin: No rashes Labs LABS Laboratory Tests Test 09/15/16 04:16 White Blood Count 13.2 x10^3/uL (4.0-11.0) Red Blood Count 3.96 x10^6/uL (3.50-5.40) Hemoglobin 12.5 g/dL (12.0-15.5) Hematocrit 37.4 % (36.0-47.0) Mean Corpuscular Volume 94 fL (79-100) Mean Corpuscular Hemoglobin 32 pg (25-35) Mean Corpuscular Hemoglobin Concent 34 g/dL (31-37) Red Cell Distribution Width 14.9 % (11.5-14.5) Platelet Count 209 x10^3/uL (140-400) Sodium Level 143 mmol/L (136-145) Potassium Level 3.0 mmol/L (3.5-5.1) Chloride Level 103 mmol/L (98-107) Carbon Dioxide Level 31 mmol/L (21-32) Anion Gap 9 (6-14) Blood Urea Nitrogen 15 mg/dL (7-20) Creatinine 1.0 mg/dL (0.6-1.0) Estimated GFR (Cockcroft-Gault) 65.4 Glucose Level 98 mg/dL (70-99) Calcium Level 10.0 mg/dL (8.5-10.1) Review of Systems Review of Systems no fever, chills, sob or chest pain Assessment and Plan Assessmemt and Plan Problems Medical Problems: (1) Narcotic overdose Status: Acute (2) Respiratory failure Status: Acute Problems: Comment Review of Relevant I have reviewed the following items estelita (where applicable) has been applied. Labs Laboratory Tests Test 09/14/16 10:00 09/14/16 10:10 09/15/16 04:16 White Blood Count 13.4 x10^3/uL (4.0-11.0) 13.2 x10^3/uL (4.0-11.0) Red Blood Count 4.26 x10^6/uL (3.50-5.40) 3.96 x10^6/uL (3.50-5.40) Hemoglobin 13.7 g/dL (12.0-15.5) 12.5 g/dL (12.0-15.5) Hematocrit 39.8 % (36.0-47.0) 37.4 % (36.0-47.0) Mean Corpuscular Volume 94 fL (79-100) 94 fL (79-100) Mean Corpuscular Hemoglobin 32 pg (25-35) 32 pg (25-35) Mean Corpuscular Hemoglobin Concent 35 g/dL (31-37) 34 g/dL (31-37) Red Cell Distribution Width 14.8 % (11.5-14.5) 14.9 % (11.5-14.5) Platelet Count 211 x10^3/uL (140-400) 209 x10^3/uL (140-400) Neutrophils (%) (Auto) 88 % (31-73) Lymphocytes (%) (Auto) 7 % (24-48) Monocytes (%) (Auto) 5 % (0-9) Eosinophils (%) (Auto) 0 % (0-3) Basophils (%) (Auto) 0 % (0-3) Neutrophils # (Auto) 11.8 x10^3uL (1.8-7.7) Lymphocytes # (Auto) 0.9 x10^3/uL (1.0-4.8) Monocytes # (Auto) 0.6 x10^3/uL (0.0-1.1) Eosinophils # (Auto) 0.0 x10^3/uL (0.0-0.7) Basophils # (Auto) 0.0 x10^3/uL (0.0-0.2) Segmented Neutrophils % 79 % (35-66) Band Neutrophils % 7 % (0-9) Lymphocytes % 9 % (24-48) Monocytes % 5 % (0-10) Platelet Estimate Adequate (ADEQUATE) Polychromasia Slight Ovalocytes Few Sodium Level 141 mmol/L (136-145) 143 mmol/L (136-145) Potassium Level 4.9 mmol/L (3.5-5.1) 3.0 mmol/L (3.5-5.1) Chloride Level 102 mmol/L (98-107) 103 mmol/L (98-107) Carbon Dioxide Level 27 mmol/L (21-32) 31 mmol/L (21-32) Anion Gap 12 (6-14) 9 (6-14) Blood Urea Nitrogen 10 mg/dL (7-20) 15 mg/dL (7-20) Creatinine 0.6 mg/dL (0.6-1.0) 1.0 mg/dL (0.6-1.0) Estimated GFR (Cockcroft-Gault) 117.9 65.4 BUN/Creatinine Ratio 17 (6-20) Glucose Level 129 mg/dL (70-99) 98 mg/dL (70-99) Calcium Level 9.5 mg/dL (8.5-10.1) 10.0 mg/dL (8.5-10.1) Total Bilirubin 0.8 mg/dL (0.2-1.0) Aspartate Amino Transf (AST/SGOT) 44 U/L (15-37) Alanine Aminotransferase (ALT/SGPT) 20 U/L (14-59) Alkaline Phosphatase 91 U/L (46-116) Total Protein 8.3 g/dL (6.4-8.2) Albumin 3.8 g/dL (3.4-5.0) Albumin/Globulin Ratio 0.8 (1.0-1.7) Magnesium Level 1.9 mg/dL (1.8-2.4) Laboratory Tests Test 09/15/16 04:16 White Blood Count 13.2 x10^3/uL (4.0-11.0) Red Blood Count 3.96 x10^6/uL (3.50-5.40) Hemoglobin 12.5 g/dL (12.0-15.5) Hematocrit 37.4 % (36.0-47.0) Mean Corpuscular Volume 94 fL (79-100) Mean Corpuscular Hemoglobin 32 pg (25-35) Mean Corpuscular Hemoglobin Concent 34 g/dL (31-37) Red Cell Distribution Width 14.9 % (11.5-14.5) Platelet Count 209 x10^3/uL (140-400) Sodium Level 143 mmol/L (136-145) Potassium Level 3.0 mmol/L (3.5-5.1) Chloride Level 103 mmol/L (98-107) Carbon Dioxide Level 31 mmol/L (21-32) Anion Gap 9 (6-14) Blood Urea Nitrogen 15 mg/dL (7-20) Creatinine 1.0 mg/dL (0.6-1.0) Estimated GFR (Cockcroft-Gault) 65.4 Glucose Level 98 mg/dL (70-99) Calcium Level 10.0 mg/dL (8.5-10.1) Microbiology 09/12/16 Blood Culture - Preliminary, Resulted NO GROWTH AFTER 2 DAYS 09/14/16 Gram Stain - Final, Complete Medications Current Medications Propofol 20 ml @ As Directed STK-MED ONCE IV ; Start 09/12/16 at 13:36; Stop at 13:37; Status DC Propofol 50 ml @ As Directed STK-MED ONCE IV ; Start 09/12/16 at 13:47; Stop at 13:48; Status DC Propofol 100 ml @ 0 mls/hr CONT PRN IV PER PROTOCOL Last administered on t 07:31; Start 09/12/16 at 14:00; Stop 09/14/16 at 16:18; Status DC Chlorhexidine Gluconate (Peridex) 15 ml BID MM Last administered on 09/13/16 11:44; Start 09/12/16 at 14:00; Stop 09/14/16 at 10:18; Status DC Propofol 50 ml @ As Directed STK-MED ONCE IV ; Start 09/12/16 at 16:07; Stop at 16:08; Status DC Amlodipine Besylate (Norvasc) 2.5 mg DAILY PO Last administered on 09/13/16 09 :52; Start 09/13/16 at 09:00; Stop 09/14/16 at 16:21; Status DC Buspirone HCl (Buspar) 5 mg DAILY PO Last administered on 09/13/16 09:52; Start 09/13/16 at 09:00; Stop 09/14/16 at 16:21; Status DC Citalopram Hydrobromide (CeleXA) 20 mg DAILY PO Last administered on 09/13/16 09:51; Start 09/13/16 at 09:00; Stop 09/14/16 at 16:21; Status DC Furosemide (Lasix) 20 mg BID92 PO ; Start 09/13/16 at 09:00; Stop 09/13/16 at 11 :53; Status DC Non-Formulary Medication 40 mg DAILY PO ; Start 09/13/16 at 09:00; Stop at 09:00; Status DC Potassium Chloride (Klor-Con) 10 meq DAILYWBKFT PO ; Start 09/13/16 at 08:00; Stop 09/13/16 at 11:52; Status DC Ondansetron HCl (Zofran) 4 mg PRN Q8HRS PRN IV NAUSEA/VOMITING; Start 09/12/16 at 16:15; Stop 09/13/16 at 12:11; Status DC Acetaminophen (Tylenol) 650 mg PRN Q6HRS PRN PO FEVER; Start 09/12/16 at 16:30 ; Stop 09/12/16 at 16:30; Status DC Ondansetron HCl (Zofran) 4 mg PRN Q6HRS PRN IV NAUSEA/VOMITING Last administered on 09/15/16 09:07; Start 09/12/16 at 16:30 Morphine Sulfate 2 mg PRN Q2HR PRN IV PAIN Last administered on 09/13/16 21:28 ; Start 09/12/16 at 16:30; Stop 09/14/16 at 16:21; Status DC Tramadol HCl (Ultram) 50 mg PRN Q6HRS PRN PO MILD - MODERATE PAIN; Start at 16:30 Hydralazine HCl (Apresoline) 10 mg PRN Q4HRS PRN IVP ELEVATED BP, SEE COMMENTS Last administered on 09/14/16 14:38; Start 09/12/16 at 16:30 Docusate Sodium (Colace) 100 mg PRN DAILY PRN PO CONSTIPATION; Start 09/12/16 at 16:30 Enoxaparin Sodium (Lovenox 40mg Syringe) 40 mg DAILY SQ Last administered on 09:06; Start 09/13/16 at 09:00 Potassium Chloride/Dextrose/ Sod Cl 1,000 ml @ 75 mls/hr 1X ONCE IV Last administered on 09/12/16 18:25; Start 09/12/16 at 16:30; Stop 09/13/16 at 05:49 ; Status DC Acetaminophen (Tylenol) 650 mg PRN Q6HRS PRN PO FEVER; Start 09/12/16 at 16:30 Propofol (Diprivan) 100 mg 1X ONCE IV Last administered on 09/12/16 13:39; Start 09/12/16 at 18:00; Stop 09/12/16 at 18:01; Status DC Vecuronium Dora (Norcuron Bolus) 10 mg 1X ONCE IV Last administered on 09/12 13:38; Start 09/12/16 at 18:00; Stop 09/12/16 at 18:01; Status DC Famotidine (Pepcid) 20 mg QHS IVP Last administered on 09/13/16 21:27; Start 09/12/16 at 21:00 Carvedilol (Coreg) 6.25 mg BIDWMEALS PO ; Start 09/13/16 at 12:00; Stop at 16:21; Status DC Acetaminophen/ Hydrocodone Bitart (Lortab 5/325) 2 tab TID PRN PRN PO SEVERE PAIN; Start 09/13/16 at 12:00 Senna/Docusate Sodium (Senna Plus) 1 tab BID PRN PO CONSTIPATION; Start at 12:00 Zolpidem Tartrate (Ambien) 5 mg QHS PO ; Start 09/13/16 at 21:00; Stop 09/14/16 at 16:21; Status DC Potassium Chloride (Klor-Con) 20 meq DAILYWBKFT PO ; Start 09/13/16 at 12:00; Stop 09/14/16 at 16:21; Status DC Atorvastatin Calcium (Lipitor) 20 mg QHS PO ; Start 09/13/16 at 21:00; Stop at 16:21; Status DC Furosemide (Lasix) 20 mg DAILY PO ; Start 09/14/16 at 09:00; Stop 09/14/16 at 16 :21; Status DC Labetalol HCl (Normodyne) 20 mg PRN Q6HRS PRN IVP ELEVATED BP, SEE COMMENTS Last administered on 09/14/16 08:06; Start 09/13/16 at 12:15; Stop 09/14/16 at 16:21; Status DC Potassium Chloride 100 ml @ 100 mls/hr Q1H IV Last administered on 09/13/16 21:26; Start 09/13/16 at 14:00; Stop 09/13/16 at 17:59; Status DC Lorazepam (Ativan) 0.05 mg Q8HRS PRN IV ANXIETY / AGITATION; Start 09/13/16 at 22:15; Stop 09/13/16 at 22:23; Status DC Albuterol Sulfate (Ventolin Neb Soln) 2.5 mg PRN QID PRN NEB WHEEZING Last administered on 09/15/16 11:36; Start 09/13/16 at 22:15 Lorazepam (Ativan) 0.5 mg PRN Q8HRS PRN IV ANXIETY / AGITATION Last administered on 09/13/16 22:52; Start 09/13/16 at 22:30 Azithromycin (Zithromax) 500 mg DAILY PO ; Start 09/14/16 at 13:00; Stop at 16:21; Status DC Morphine Sulfate 2 mg PRN Q3HRS PRN IV PAIN Last administered on 09/15/16 05: 30; Start 09/14/16 at 16:30 Labetalol HCl (Normodyne) 10 mg PRN Q6HRS PRN IVP HYPERTENSION, SEE COMMENTS; Start 09/14/16 at 16:30 Azithromycin 500 mg/Sodium Chloride 250 ml @ 250 mls/hr Q24H IV Last administered on 09/14/16 16:43; Start 09/14/16 at 17:00 Furosemide (Lasix) 20 mg DAILY IVP Last administered on 09/15/16 09:07; Start 09/14/16 at 17:00 Throat Lozenges (Cepacol Sore Throat Lozenge) 1 jacquie PRN Q2HRS PRN PO SORE THROAT; Start 09/15/16 at 11:00 Potassium Chloride 50 ml @ 50 mls/hr Q1H IV ; Start 09/15/16 at 11:00; Stop at 12:59; Status UNV Potassium Chloride 100 ml @ 100 mls/hr Q1H IV ; Start 09/15/16 at 11:00; Stop 09/15/16 at 14:59 Active Scripts Active Reported Trazodone Hcl 300 Mg Tablet 1 Tab PO QHS Furosemide 20 Mg Tablet 1 Tab PO DAILY PRN Potassium Chloride 20 Meq Tablet.er 20 Meq PO DAILY Proair Hfa Inhaler (Albuterol Sulfate) 8.5 Gm Hfa.aer.ad 1-2 Puff INH PRN Q4HRS PRN Semprex-D 8 Mg-60 Mg Capsule (Pseudoephedrine Hcl/Acrivas) 1 Each Capsule 1 Cap PO Q6HRS PRN Carvedilol 6.25 Mg Tablet 1 Tab PO BID Senokot-S Tablet (Sennosides/Docusate Sodium) 1 Each Tablet 1 Tab PO BID PRN [place] 5-325 Tablet (Acetaminophen/Hydrocodone Bitart) 1 Each Tablet 1-2 Tab PO TID PRN PRN Ambien (Zolpidem Tartrate) 5 Mg Tablet 1 Tab PO QHS Alprazolam 0.5 Mg Tablet 1 Tab PO BID PRN Celexa (Citalopram Hydrobromide) 20 Mg Tablet 20 Mg PO DAILY Nexium Capsule (Esomeprazole Magnesium) 40 Mg Capsule.dr 40 Mg PO DAILY FENTANYL 50mcg/hr (Fentanyl) 1 Each Patch.td72 1 Each TD Q3DAYS Zostavax Vial (Zoster Vaccine Live/Pf) 19,400 Unit Vial 19,400 Unit SQ Pravastatin Sodium 80 Mg Tablet 80 Mg PO DAILY Vitals/I & O Vital Sign - Last 24 Hours 09/14/16 09/14/16 09/14/16 09/14/16 13:49 14:38 16:43 16:57 Temp 98.6 98.6 Pulse 82 82 Resp 20 B/P (MAP) 173/92 (119) 167/103 Pulse Ox 98 98 O2 Delivery Nasal Cannula Nasal Cannula Nasal Cannula O2 Flow Rate 2.0 2.0 09/14/16 09/14/16 09/14/16 09/14/16 17:20 18:10 19:30 20:00 Temp 98.1 99.3 98.1 99.3 Pulse 98 82 Resp 20 20 B/P (MAP) 158/88 (111) 150/123 (132) Pulse Ox 100 99 O2 Delivery Nasal Cannula Nasal Cannula Nasal Cannula Nasal Cannula O2 Flow Rate 2.0 2.0 2.0 2.0 09/14/16 09/14/16 09/14/16 09/15/16 21:15 23:29 23:30 03:30 Temp 99.1 98.7 99.1 98.7 Pulse 89 72 67 Resp 18 20 18 B/P (MAP) 149/74 (99) 136/78 (97) 157/71 (99) Pulse Ox 100 100 O2 Delivery Nasal Cannula Nasal Cannula Nasal Cannula O2 Flow Rate 2.0 2.0 2.0 09/15/16 09/15/16 09/15/16 09/15/16 05:30 06:00 07:00 08:00 Temp 98.7 98.7 Pulse 76 Resp 16 18 18 B/P (MAP) 147/69 (95) Pulse Ox 100 O2 Delivery Nasal Cannula Room Air Nasal Cannula Nasal Cannula O2 Flow Rate 2.0 2.0 2.0 2.0 09/15/16 09/15/16 10:59 11:36 Temp 98.9 98.9 Pulse 69 Resp 18 B/P (MAP) 146/69 (94) Pulse Ox 100 O2 Delivery Nasal Cannula Nasal Cannula O2 Flow Rate 2.0 2.0 Intake and Output 09/14/16 09/14/16 09/15/16 15:00 23:00 07:00 Intake Total 0 ml 0 ml 0 ml Output Total 850 ml 250 ml Balance 0 ml -850 ml -250 ml VANESSA BOWSER MD Sep 15, 2016 12:56
[2016-09-15] MEDS ORDERED: AMINO AC 3%/ELECTROLYTE/GLYCER 1,000 ML IV SCH (13:00)
[2016-09-15 14:41] VITALS: BP 147/79
[2016-09-15] MEDS ORDERED: POTASSIUM CHLORIDE 20 MEQ TABLET.ER. PO ONE (15:00)
[2016-09-15] MEDS: HYDROcodone/APAP 5/325MG 1 TAB TABLET PO PRN (15:00)
[2016-09-15] MEDS ORDERED: AZITHROMYCIN 250 MG TABLET. PO SCH (17:00)
[2016-09-15] MEDS ORDERED: ZOLPIDEM 5 MG TABLET. PO PRN (17:15)
[2016-09-15] MEDS: CARVEDILOL 6.25 MG TABLET. PO SCH (17:23)
[2016-09-15] MEDS: ONDANSETRON ODT 4 MG TAB.RAPDIS. PO PRN (17:23)
[2016-09-15 19:00] VITALS: BP 138/59
[2016-09-15] MEDS ORDERED: FAMOTIDINE 20 MG TABLET. PO SCH (21:00)
[2016-09-15 23:00] VITALS: BP 122/68
[2016-09-16] MEDS: HYDROcodone/APAP 5/325MG 1 TAB TABLET PO PRN ×2 (00:27→07:48)
[2016-09-16 03:00] VITALS: BP 147/76
[2016-09-16 05:11] LABS: BASO # 0.1 x10^3/uL (0.0-0.2); BASO % 1 % (0-3); EOS % 2 % (0-3); HEMATOCRIT 36.3 % (36.0-47.0); HEMOGLOBIN 12.3 g/dL (12.0-15.5); LYMPH # 1.9 x10^3/uL (1.0-4.8); LYMPH % 17 % (24-48); MEAN CORPUSCULAR HEMOGLOBIN 32 pg (25-35); MEAN CORPUSCULAR HGB CONC 34 g/dL (31-37); MEAN CORPUSCULAR VOLUME 93 fL (79-100); MONO % 12 % (0-9); NEUT % 69 % (31-73); PLATELET COUNT 224 x10^3/uL (140-400); RED BLOOD COUNT 3.89 x10^6/uL (3.50-5.40); RED CELL DISTRIBUTION WIDTH 14.8 % (11.5-14.5); WHITE BLOOD COUNT 11.7 x10^3/uL (4.0-11.0)
[2016-09-16 05:37] LABS: CALCIUM 9.7 mg/dL (8.5-10.1); CREATININE 1.1 mg/dL (0.6-1.0); GFR 58.6; POTASSIUM 3.4 mmol/L (3.5-5.1)
[2016-09-16 07:00] VITALS: BP 154/68
[2016-09-16] MEDS: CARVEDILOL 6.25 MG TABLET. PO SCH (07:47)
[2016-09-16] MEDS: ENOXAPARIN 40 MG/0.4 ML SYRINGE. SQ SCH (07:47)
[2016-09-16] MEDS: ONDANSETRON ODT 4 MG TAB.RAPDIS. PO PRN (07:47)
--- NOTE | 2016-09-16 08:17 | PDOC ---
PULMONARY PROGRESS NOTES Subjective extubated 09/13 doing well Vitals Vital Signs Date Time Temp Pulse Resp B/P (MAP) Pulse Ox O2 Delivery O2 Flow Rate FiO2 09/16/16 07:48 Room Air 09/16/16 07:47 61 154/68 09/16/16 07:00 98.2 20 97 98.2 09/15/16 16:28 2.0 General: Alert, No acute distress Lungs: Clear Cardiovascular: S1 Abdomen: Soft Neuro Exam: Alert Extremities: Other (TRACE EDEMA) Labs Laboratory Tests Test 09/14/16 10:00 09/14/16 10:10 09/15/16 04:16 09/16/16 04:37 White Blood Count 13.4 x10^3/uL (4.0-11.0) 13.2 x10^3/uL (4.0-11.0) 11.7 x10^3/uL (4.0-11.0) Red Blood Count 4.26 x10^6/uL (3.50-5.40) 3.96 x10^6/uL (3.50-5.40) 3.89 x10^6/uL (3.50-5.40) Hemoglobin 13.7 g/dL (12.0-15.5) 12.5 g/dL (12.0-15.5) 12.3 g/dL (12.0-15.5) Hematocrit 39.8 % (36.0-47.0) 37.4 % (36.0-47.0) 36.3 % (36.0-47.0) Mean Corpuscular Volume 94 fL (79-100) 94 fL (79-100) 93 fL (79-100) Mean Corpuscular Hemoglobin 32 pg (25-35) 32 pg (25-35) 32 pg (25-35) Mean Corpuscular Hemoglobin Concent 35 g/dL (31-37) 34 g/dL (31-37) 34 g/dL (31-37) Red Cell Distribution Width 14.8 % (11.5-14.5) 14.9 % (11.5-14.5) 14.8 % (11.5-14.5) Platelet Count 211 x10^3/uL (140-400) 209 x10^3/uL (140-400) 224 x10^3/uL (140-400) Neutrophils (%) (Auto) 88 % (31-73) 69 % (31-73) Lymphocytes (%) (Auto) 7 % (24-48) 17 % (24-48) Monocytes (%) (Auto) 5 % (0-9) 12 % (0-9) Eosinophils (%) (Auto) 0 % (0-3) 2 % (0-3) Basophils (%) (Auto) 0 % (0-3) 1 % (0-3) Neutrophils # (Auto) 11.8 x10^3uL (1.8-7.7) 8.1 x10^3uL (1.8-7.7) Lymphocytes # (Auto) 0.9 x10^3/uL (1.0-4.8) 1.9 x10^3/uL (1.0-4.8) Monocytes # (Auto) 0.6 x10^3/uL (0.0-1.1) 1.4 x10^3/uL (0.0-1.1) Eosinophils # (Auto) 0.0 x10^3/uL (0.0-0.7) 0.2 x10^3/uL (0.0-0.7) Basophils # (Auto) 0.0 x10^3/uL (0.0-0.2) 0.1 x10^3/uL (0.0-0.2) Segmented Neutrophils % 79 % (35-66) Band Neutrophils % 7 % (0-9) Lymphocytes % 9 % (24-48) Monocytes % 5 % (0-10) Platelet Estimate Adequate (ADEQUATE) Polychromasia Slight Ovalocytes Few Sodium Level 141 mmol/L (136-145) 143 mmol/L (136-145) 140 mmol/L (136-145) Potassium Level 4.9 mmol/L (3.5-5.1) 3.0 mmol/L (3.5-5.1) 3.4 mmol/L (3.5-5.1) Chloride Level 102 mmol/L (98-107) 103 mmol/L (98-107) 101 mmol/L (98-107) Carbon Dioxide Level 27 mmol/L (21-32) 31 mmol/L (21-32) 29 mmol/L (21-32) Anion Gap 12 (6-14) 9 (6-14) 10 (6-14) Blood Urea Nitrogen 10 mg/dL (7-20) 15 mg/dL (7-20) 25 mg/dL (7-20) Creatinine 0.6 mg/dL (0.6-1.0) 1.0 mg/dL (0.6-1.0) 1.1 mg/dL (0.6-1.0) Estimated GFR (Cockcroft-Gault) 117.9 65.4 58.6 BUN/Creatinine Ratio 17 (6-20) Glucose Level 129 mg/dL (70-99) 98 mg/dL (70-99) 103 mg/dL (70-99) Calcium Level 9.5 mg/dL (8.5-10.1) 10.0 mg/dL (8.5-10.1) 9.7 mg/dL (8.5-10.1) Total Bilirubin 0.8 mg/dL (0.2-1.0) Aspartate Amino Transf (AST/SGOT) 44 U/L (15-37) Alanine Aminotransferase (ALT/SGPT) 20 U/L (14-59) Alkaline Phosphatase 91 U/L (46-116) Total Protein 8.3 g/dL (6.4-8.2) Albumin 3.8 g/dL (3.4-5.0) Albumin/Globulin Ratio 0.8 (1.0-1.7) Magnesium Level 1.9 mg/dL (1.8-2.4) Laboratory Tests Test 09/16/16 04:37 White Blood Count 11.7 x10^3/uL (4.0-11.0) Red Blood Count 3.89 x10^6/uL (3.50-5.40) Hemoglobin 12.3 g/dL (12.0-15.5) Hematocrit 36.3 % (36.0-47.0) Mean Corpuscular Volume 93 fL (79-100) Mean Corpuscular Hemoglobin 32 pg (25-35) Mean Corpuscular Hemoglobin Concent 34 g/dL (31-37) Red Cell Distribution Width 14.8 % (11.5-14.5) Platelet Count 224 x10^3/uL (140-400) Neutrophils (%) (Auto) 69 % (31-73) Lymphocytes (%) (Auto) 17 % (24-48) Monocytes (%) (Auto) 12 % (0-9) Eosinophils (%) (Auto) 2 % (0-3) Basophils (%) (Auto) 1 % (0-3) Neutrophils # (Auto) 8.1 x10^3uL (1.8-7.7) Lymphocytes # (Auto) 1.9 x10^3/uL (1.0-4.8) Monocytes # (Auto) 1.4 x10^3/uL (0.0-1.1) Eosinophils # (Auto) 0.2 x10^3/uL (0.0-0.7) Basophils # (Auto) 0.1 x10^3/uL (0.0-0.2) Sodium Level 140 mmol/L (136-145) Potassium Level 3.4 mmol/L (3.5-5.1) Chloride Level 101 mmol/L (98-107) Carbon Dioxide Level 29 mmol/L (21-32) Anion Gap 10 (6-14) Blood Urea Nitrogen 25 mg/dL (7-20) Creatinine 1.1 mg/dL (0.6-1.0) Estimated GFR (Cockcroft-Gault) 58.6 Glucose Level 103 mg/dL (70-99) Calcium Level 9.7 mg/dL (8.5-10.1) Medications Active Scripts Medications Dose Route/Sig Max Daily Dose Days Date Category Trazodone Hcl 300 Mg Tablet 1 Tab PO QHS 09/13/16 Reported Furosemide 20 Mg Tablet 1 Tab PO DAILY PRN 09/13/16 Reported Potassium Chloride 20 Meq Tablet.er 20 Meq PO DAILY 09/13/16 Reported Proair Hfa Inhaler (Albuterol Sulfate) 8.5 Gm Hfa.aer.ad 1-2 Puff INH PRN Q4HRS PRN 09/13/16 Reported Semprex-D 8 Mg-60 Mg Capsule (Pseudoephedrine Hcl/Acrivas) 1 Each Capsule 1 Cap PO Q6HRS PRN 09/13/16 Reported Carvedilol 6.25 Mg Tablet 1 Tab PO BID 09/13/16 Reported Senokot-S Tablet (Sennosides/Docusate Sodium) 1 Each Tablet 1 Tab PO BID PRN 09/13/16 Reported [place] 5-325 Tablet (Acetaminophen/Hydrocodone Bitart) 1 Each Tablet 1-2 Tab PO TID PRN PRN 09/13/16 Reported Ambien (Zolpidem Tartrate) 5 Mg Tablet 1 Tab PO QHS 09/13/16 Reported Alprazolam 0.5 Mg Tablet 1 Tab PO BID PRN 09/13/16 Reported Celexa (Citalopram Hydrobromide) 20 Mg Tablet 20 Mg PO DAILY 03/20/13 Reported Nexium Capsule (Esomeprazole Magnesium) 40 Mg Capsule.dr 40 Mg PO DAILY 03/20/13 Reported FENTANYL 50mcg/hr (Fentanyl) 1 Each Patch.td72 1 Each TD Q3DAYS 03/20/13 Reported Zostavax Vial (Zoster Vaccine Live/Pf) 19,400 Unit Vial 19,400 Unit SQ 03/20/13 Reported Pravastatin Sodium 80 Mg Tablet 80 Mg PO DAILY 03/20/13 Reported Impression . ACUTE RESP FAILURE SEC TO OD ON FENTANYL CHRONIC PAIN SYNDROME TOXIC ENCEPHALOPATHY POA, RESOLVED COPD FEVER COULD BE RELATED TO OD CXR IS CLEAR, RESOLVED FEVER Plan . EXTUBATED 09/13 DOING WELL OFF OXYGEN DYSPHAGIA RESOLVED D/W RN OK WITH DC PLANS JOLLY GOULD MD Sep 16, 2016 08:17
[2016-09-16 11:00] VITALS: BP 140/74
[2016-09-16] MEDS: ALBUTEROL SULFATE 2.5 MG/3 ML NEBU. NEB PRN (11:25)
[2016-09-16] MEDS ORDERED: POTASSIUM CHLORIDE 20 MEQ TABLET.ER. PO ONE (11:45)
[2016-09-16] MEDS ORDERED: GUAI100L12 PO (11:52)
--- NOTE | 2016-09-16 13:40 | PDOC3 ---
Discharge Summary [facility] Date of Admission: Sep 12, 2016 Discharge Date: Sep 16, 2016 Admitting Diagnosis 1. Toxic encephalopathy: 2/2 fentanyl OD. resolved 2. Acute resp failure 3. Chronic shoulder/back and abd pain post h/o sx 4. Fentanyl OD 5. Hx benzo W/D: admitted 3 yrs ago. 6. Drug abuse: marijuana 7. Dementia 8. HTN, HLD 9. Hx uterus/cervical Ca post sx 10. Recent hx urinary incontinence: F/U with urology on O/P basis 11. dysphagia, post intubation 12. CKD 3 Problems: Final Diagnosis CONSULTS pulm Brief Hospital Course Patient is a 76 year old -[place] female history of chronic right shoulder pain, back pain, abd pain, was sent by EMS for AMS today. Pt is currently intubated, all history comes from daughter and ERP. Pt lives with her , doing ok till today , was found by her daughter who came to visit her at home with confusion. Pt was staring straight, not talking or answer questions, shallow breathing. She was also found urinary incontinence for which [facility] and was told to fu uro next week. Pt was found 4 fentanyl patch on her back (50mcg), one in her mouth, she also takes lortab, xanax, and urine tox is also + for marijuana. as per ERP, A milligram of Narcan was given the patient was more alert with a GCS of 12. Patient alert, tremulous with incoherent speech on ED arrival. She is not cooperative with exam. Patient was noted to have fever of 100.4. and then she was intubated. pt has history of multiple abd sx, as per daughter , since then chronic pain issues. pt was intubated in ER, extubated on 2nd day. She cont having sore throat, failed swallow eval till yesterday. Now she feels ok, mild sore throat, + cough with mucus. cont chronic abd and chest pain. aaox3. pleasant. dc home with cough meds dc time 35min General: Alert, Oriented X3, Cooperative, No acute distress Heart: Regular rate Lungs: Clear Abdomen: Normal bowel sounds, Soft, No tenderness Extremities: No edema Skin: No rashes Patient History: Unknown Problems: Disposition home CONDITION AT DISCHARGE: Improved, Stable Diet regular Scheduled Carvedilol (Carvedilol), 1 TAB PO BID, (Reported) Citalopram Hydrobromide (Celexa), 20 MG PO DAILY, (Reported) Esomeprazole Magnesium (Nexium Capsule), 40 MG PO DAILY, (Reported) Fentanyl (FENTANYL 50mcg/hr), 1 EACH TD Q3DAYS, (Reported) Potassium Chloride (Potassium Chloride), 20 MEQ PO DAILY, (Reported) Pravastatin Sodium (Pravastatin Sodium), 80 MG PO DAILY, (Reported) Trazodone Hcl (Trazodone Hcl), 1 TAB PO QHS, (Reported) Zolpidem Tartrate (Ambien), 1 TAB PO QHS, (Reported) Scheduled PRN Albuterol Sulfate (Proair Hfa Inhaler), 1-2 PUFF INH PRN Q4HRS PRN for WHEEZING, (Reported) Alprazolam (Alprazolam), 1 TAB PO BID PRN for ANXIETY / AGITATION, (Reported) Furosemide (Furosemide), 1 TAB PO DAILY PRN for SEE COMMENTS, (Reported) Guaifenesin (Guaifenesin), 200 MG PO PRN Q4HRS PRN for COUGH 1st choice Hydrocodone/Apap 5-325 ([place] 5-325 Tablet), 1-2 TAB PO TID PRN PRN for PAIN, ( Reported) Pseudoephedrine Hcl/Acrivas (Semprex-D 8 Mg-60 Mg Capsule), 1 CAP PO Q6HRS PRN for SEE COMMENTS, (Reported) Sennosides/Docusate Sodium (Senokot-S Tablet), 1 TAB PO BID PRN for CONSTIPATION , (Reported) Miscellaneous Medications Zoster Vaccine Live/Pf (Zostavax Vial), 19,400 UNIT SQ, (Reported) Discontinued Medications Alprazolam (Xanax), 0.25 MG PO PRN Q6HRS PRN for ANXIETY / AGITATION, (Reported) Amlodipine Besylate (Norvasc), 2.5 MG PO DAILY, (Reported) Buspirone Hcl (Buspirone Hcl), 5 MG PO DAILY, (Reported) Furosemide (Lasix), 20 MG PO BID, (Reported) Hydrocodone Bit/Acetaminophen (Hydrocodone-Apap 7.5-325 ), 1 EACH PO PRN Q6HRS PRN for PAIN, (Reported) Potassium Chloride (Potassium Chloride), 10 MEQ PO DAILY, (Reported) Sennosides (Senokot), 8.6 MG PO DAILY, (Reported) Trazodone Hcl (Trazodone Hcl), 50 MG PO HS, (Reported) Follow Up pcp in 2 weeks VANESSA BOWSER MD Sep 16, 2016 13:40
== END 2016-09-16 13:22 | disposition home or self-care (01) | DRG 917 ==
LOC: ER 13:27 → 1 WEST ICU 14:00 → 6 SOUTH 09-14 16:14
PROVIDERS: ADMIT Internal Medicine; ATTEND Internal Medicine
PROC: 5A1945Z Respiratory Ventilation, 24-96 Consecutive Hours (ICD-10-PCS; principal; 2016-09-12)
PROC: 0BH17EZ Insertion of Endotracheal Airway into Trachea, Via Natural or Artificial Opening (ICD-10-PCS; 2016-09-12)
DX: T40.4X1A Poisoning by other synthetic narcotics, accidental (unintentional), initial encounter (principal); J96.00 Acute respiratory failure, unspecified whether with hypoxia or hypercapnia; G92 Toxic encephalopathy; R65.10 Systemic inflammatory response syndrome (SIRS) of non-infectious origin without acute organ dysfunction; I13.0 Hypertensive heart and chronic kidney disease with heart failure and stage 1 through stage 4 chronic kidney disease, or unspecified chronic kidney disease; Z98.51 Tubal ligation status; E78.00 Pure hypercholesterolemia, unspecified; E78.5 Hyperlipidemia, unspecified; F03.90 Unspecified dementia, unspecified severity, without behavioral disturbance, psychotic disturbance, mood disturbance, and anxiety; F12.10 Cannabis abuse, uncomplicated; G89.4 Chronic pain syndrome; I50.9 Heart failure, unspecified; J44.9 Chronic obstructive pulmonary disease, unspecified; Z82.49 Family history of ischemic heart disease and other diseases of the circulatory system; F32.9 Major depressive disorder, single episode, unspecified; F41.9 Anxiety disorder, unspecified; M19.90 Unspecified osteoarthritis, unspecified site; Y92.89 Other specified places as the place of occurrence of the external cause; G89.29 Other chronic pain; M25.519 Pain in unspecified shoulder; N18.3 Chronic kidney disease, stage 3 (moderate)
CPT/HCPCS: 36415; 36600; 51702; 71010; 71020; 80048; 80053; 80329; 81001; 82805; 83735; 83880; 84484; 85007; 85027; 87040; 87070; 87205; 87641; 93005; 94002; 94003; 94250; 94640; 94760; 96374; 96375; A4314; G0480; G0481; J0360; J0456; J1650; J2060; J2270; J2405; J2704; J3480; J3490; J7050; Q0144; Q0162; S0028; 92526; 92610; 99285-25; J7030

== ENCOUNTER 2016-12-05 11:20 | Emergency (ER) | payer BC, MEDICARE ==
[~2016-12-05] VITALS: Ht 157.5 cm; Wt 61.2 kg
[~2016-12-05 11:20] MED LIST changes: +ALPR0.5T6 PO; +CARV6.252 PO; +FURO20TA3 PO; +GUAI100L12 PO; +HYDR-971 PO; +POTA20TA82 PO; +PROAIR HFA8.5 GM INH; +PSEU1CAP14 PO; +SENN-37 PO; +TRAZ300T2 PO; +ZOLP5TAB PO
[2016-12-05 11:24] VITALS: BP 158/74
--- NOTE | 2016-12-05 11:59 | PHYS DOC ---
Past Medical History Past Medical History: Arthritis, High Cholesterol, Hypertension, Other Additional Past Medical Histor: Chronic pain, bowel obstruction, HYPOGLYCEMIA; STAGE 3 KIDNEY DISEASE Past Surgical History: Tubal ligation, Other Additional Past Surgical Histo: Colon resection, EYE SX, R ROTATOR CUFF, ARTHROSCOPY Alcohol Use: Occasionally Drug Use: None Adult General Chief Complaint Chief Complaint: PAIN CONTROL HPI HPI Patient is a 76 year old female with a history of chronic pain presents to the ED asking to receive pain medication because her PCP stopped giving her hydrocodone's since her narcotic overdose. States she is only getting her tramadol. Patient states she is having the same chronic pain in her right shoulder and in her stomach from previous surgeries. Denies change in intensity or frequency of pain. Patient was seen in the ED on 09/12/16 for narcotic overdose after being found with fentanyl patches on her back and in her mouth. at bedside provided story. Patient denies chest pain, shortness breath, dizziness, weakness, syncope, fever, nausea/vomiting. Review of Systems Review of Systems Constitutional: Denies fever or chills [] Eyes: Denies change in visual acuity, redness, or eye pain [] HENT: Denies nasal congestion or sore throat [] Respiratory: Denies cough or shortness of breath [] Cardiovascular: No additional information not addressed in HPI [] GI: Complains of abdominal pain. Denies nausea, vomiting, bloody stools or diarrhea [] : Denies dysuria or hematuria [] Musculoskeletal: Denies back pain. Complains of shoulder pain [] Integument: Denies rash or skin lesions [] Neurologic: Denies headache, focal weakness or sensory changes [] Endocrine: Denies polyuria or polydipsia [] Current Medications Current Medications Current Medications Medications (Trade) Dose Ordered Sig/[facility] Start Time Stop Time Status Last Admin Dose Admin Ondansetron HCl (Zofran Odt) 4 mg 1X ONCE 12/05/16 13:00 12/05/16 13:00 DC Allergies Allergies Allergies Coded Allergies Type Severity Reaction Last Updated Verified No Known Drug Allergies 01/04/14 No Physical Exam Physical Exam Constitutional: Well developed, well nourished, no acute distress, non-toxic appearance. [] HENT: Normocephalic, atraumatic, bilateral external ears normal, oropharynx moist, no oral exudates, nose normal. [] Eyes: PERRLA, EOMI, conjunctiva normal, no discharge. [] Neck: Normal range of motion, no tenderness, supple, no stridor. [] Cardiovascular:Heart rate regular rhythm, no murmur [] Lungs & Thorax: Bilateral breath sounds clear to auscultation [] Abdomen: Bowel sounds normal, soft, no tenderness, no masses, no pulsatile masses. [] Skin: Warm, dry, no erythema, no rash. [] Back: No tenderness, no CVA tenderness. [] Extremities: No tenderness, no cyanosis, no clubbing, ROM intact, no edema. [] Neurologic: Alert and oriented X 3, normal motor function, normal sensory function, no focal deficits noted. [] Psychologic: Affect normal, judgement normal, mood normal. [] Current Patient Data Vital Signs Vital Signs Date Time Temp Pulse Resp B/P (MAP) Pulse Ox O2 Delivery O2 Flow Rate FiO2 12/05/16 11:24 98.5 60 24 158/74 (102) 99 Room Air 98.5 EKG EKG [] Radiology/Procedures Radiology/Procedures [] Impressions: After discussing chronic pain clinics and narcotic abuse. PATIENT ELOPED FROM ED. Unable to find patient for reassessment. was at bedside with her. Course & Med Decision Making Course & Med Decision Making Pertinent Labs and Imaging studies reviewed. (See chart for details) [] Dragon Disclaimer Dragon Disclaimer This electronic medical record was generated, in whole or in part, using a voice recognition dictation system. Departure Departure Impression: Primary Impression: Chronic pain Additional Impression: Shoulder pain Disposition: 07 AGAINST MEDICAL ADVICE Condition: STABLE Referrals: RUBIN GILL (PCP) Problem Qualifiers MELBA HOLLIS Dec 05, 2016 11:59
[2016-12-05] MEDS ORDERED: ONDANSETRON ODT 4 MG TAB.RAPDIS. PO ONE (13:00)
== END 2016-12-05 11:55 | disposition left against medical advice (07) ==
LOC: ER 11:20
DX: G89.29 Other chronic pain (principal); M25.511 Pain in right shoulder; M19.90 Unspecified osteoarthritis, unspecified site; E78.00 Pure hypercholesterolemia, unspecified; I13.10 Hypertensive heart and chronic kidney disease without heart failure, with stage 1 through stage 4 chronic kidney disease, or unspecified chronic kidney disease; N18.3 Chronic kidney disease, stage 3 (moderate)
CPT/HCPCS: 99281

== ENCOUNTER → 2016-12-06 | Outpatient (CLI) | payer BC, MEDICARE ==
[2016-12-05 11:24] VITALS: BP 158/74
[2016-12-06 13:29] LABS: CALCIUM 8.9 mg/dL (8.5-10.1); CREATININE 1.1 mg/dL (0.6-1.0); GFR 58.6
== END | disposition home or self-care (01) ==
LOC: LAB 12:19
PROVIDERS: ATTEND Internal Medicine Nephrology
DX: N18.3 Chronic kidney disease, stage 3 (moderate) (principal)
CPT/HCPCS: 36415; 80048; 82043; 82570

== ENCOUNTER 2021-08-12 19:00 | Emergency (ER) | payer BC, MEDICARE ==
[~2021-08-12] VITALS: Ht 154.9 cm; Wt 64.0 kg
[~2021-08-12 19:00] MED LIST changes: +ALBU2.5V8 IH; +ALBU2.5V8 INH; +CARV6.2511 PO; -CARV6.252 PO; +CYCL10TA19 PO; -CYCL10TA2 PO; -GABA-586 PO; +GABA300C18 PO; -HYDR-2762 PO; +HYDR-2765 PO; +HYDR-3164 PO; -HYDR-971 PO; +LABE100T5 PO; -LABE200T2 PO; +LABE200T4 PO; +MIRT-36 PO; -MIRT15TA PO; -NITR0.4T SL; +NITR0.4T24 SL; +POTA10TA12 PO; +POTA20TA4 PO; -POTA20TA82 PO; -POTASSIUM CHLO10 MEQ PO; -PROAIR HFA8.5 GM IH; -PROAIR HFA8.5 GM INH; +TRAZ-118 PO; -TRAZ50TA15 PO
[2021-08-12 20:27] LABS: BASO # 0.1 x10^3/uL (0.0-0.2); BASO % 1 % (0-3); EOS # 0.1 x10^3/uL (0.0-0.7); EOS % 1 % (0-3); HEMATOCRIT 38.6 % (36.0-47.0); HEMOGLOBIN 13.5 g/dL (12.0-15.5); LYMPH # 2.1 x10^3/uL (1.0-4.8); LYMPH % 20 % (24-48); MEAN CORPUSCULAR HEMOGLOBIN 33 pg (25-35); MEAN CORPUSCULAR HGB CONC 35 g/dL (31-37); MEAN CORPUSCULAR VOLUME 95 fL (79-100); MONO # 0.9 x10^3/uL (0.0-1.1); MONO % 9 % (0-9); NEUT # 7.5 x10^3/uL (1.8-7.7); NEUT % 70 % (31-73); PLATELET COUNT 265 x10^3/uL (140-400); RED BLOOD COUNT 4.09 x10^6/uL (3.50-5.40); RED CELL DISTRIBUTION WIDTH 13.7 % (11.5-14.5); WHITE BLOOD COUNT 10.7 x10^3/uL (4.0-11.0)
[2021-08-12] MEDS ORDERED: IV RINGERS,LACTATED 1000ML 1,000 ML IV SCH (20:30)
[2021-08-12] MEDS ORDERED: diphenhydrAMINE 50 MG/ML VIAL IVP ONE (20:30)
[2021-08-12] MEDS ORDERED: PROCHLORPERAZINE 10 MG/2 ML VIAL. IVP ONE (20:30)
[2021-08-12 20:31] LABS: BACTERIA,URINE 0 /HPF (0-FEW)
[2021-08-12 21:01] LABS: ALBUMIN 3.6 g/dL (3.4-5.0); ALBUMIN/GLOBULIN RATIO 0.9 (1.0-1.7); CALCIUM 9.1 mg/dL (8.5-10.1); CREATININE 1.2 mg/dL (0.6-1.0); GFR 52.3; TOTAL BILIRUBIN 0.4 mg/dL (0.2-1.0); TOTAL PROTEIN 7.4 g/dL (6.4-8.2)
[2021-08-12 21:07] LABS: POTASSIUM 2.9 mmol/L (3.5-5.1)
[2021-08-12] MEDS ORDERED: CONTRAST GIVEN. MC PRN (21:15)
[2021-08-12] MEDS ORDERED: POTASSIUM CHLORIDE 20MEQ 100 ML IV ONE (21:15)
[2021-08-12] MEDS ORDERED: IOHEXOL 300 MG/ML 100ML VIAL. IV ONE (21:15)
[2021-08-12] MEDS ORDERED: MAGNESIUM SULFATE 2GM 50 ML IV ONE (21:30)
--- NOTE | 2021-08-12 21:35 | RAD ---
Exam: CT of abdomen and pelvis with contrast INDICATION: Abdominal pain, Back pain TECHNIQUE: Sequential axial images through the abdomen and pelvis obtained following the administrati on of 60 mL of Isovue-370 IV contrast. Sagittal and coronal reformatted images were reconstructed fro m the axial data and reviewed. Exposure: One or more of the following in the visualized dose reduction techniques were utilized for this examination: 1. Automated exposure control 2. Adjustment of the MA and/or KV according to patient size 3. Use of iterative of reconstructive technique Comparisons: 09/10/2017 FINDINGS: Heart size is normal. No pericardial effusion. Visualized lung bases are clear. No pleural effusion. Liver, spleen, pancreas, gallbladder and adrenals are unremarkable. No perinephric inflammation or hydronephrosis. No renal or ureteral calculi are identified. Bladder is partially distended and appears thin-walled. Uterus is absent. No abnormal adnexal mass. Postoperative changes noted at the descending colon. Remainder of the large and small bowel are unrem arkable. Appendix is absent. No free intra-abdominal air or fluid. No obstruction. Abdominal aorta has a normal course and caliber. Abdominal vasculature is patent. No enlarged intra-abdominal lymph nodes are identified. No suspicious osseous lesions or acute fractures. IMPRESSION: No acute process identified in the abdomen or pelvis Electronically signed by: Chery Funes MD (08/12/2021 9:33 PM) [facility]
[2021-08-12] MEDS: POTASSIUM CHLORIDE 10MEQ 100 ML IV SCH ×2 (21:49→22:50)
--- NOTE | 2021-08-12 22:35 | PHYS DOC ---
Past Medical History Past Medical History: Arthritis, High Cholesterol, Hypertension, Other Additional Past Medical Histor: Chronic pain,bowel o bstruction,HYPOGLYCEMIA;STAGE 3 KIDNEY DISEASE Past Surgical History: Appendectomy, Hysterectomy, Tubal ligation, Other Additional Past Surgical Histo: Colon resection,EYE SX,R ROTATOR CUFF,ARTHROSCOPY,HERNIAS Smoking Status: Former Smoker Alcohol Use: Occasionally Drug Use: None General Adult EDM: Chief Complaint: HEADACHE HPI: HPI: Patient is a 81 year old with a history of headaches who [facility] with complaints of headache and abdominal pain. Patient states she has had abdominal pain since yesterday. She is also had a headache. She describes abdominal pain as crampy in nature. There are no palliative or provocative factors for the pain. She states the pain generalized across her entire abdomen. It does not radiate. She states pain is about a 7 out of 10. She does endorse some associated nausea but denies any vomiting. She denies any diarrhea. She denies any blood in her stools. She denies any burning or painful urination. She denies any vaginal bleeding. She states that headache is frontal. She describes it as sharp in nature. She states it is also 7 out of 10. There are no pallative provocative factors for the headache. She states this feels like her typical headache. It was neither sudden in onset or maximal at onset. She states she last had a headache this bad sometime last year. She denies any recent trauma to her head. She denies any fevers or chills. She denies any focal weakness. She denies any sensory changes. She denies any change in her vision. Review of Systems: Review of Systems: Constitutional: Denies fever or chills. [] Eyes: Denies change in visual acuity. [] HENT: Denies nasal congestion or sore throat. [] Respiratory: Denies cough or shortness of breath. [] Cardiovascular: Denies chest pain or edema. [] GI: Denies vomiting, bloody stools or diarrhea. [] : Denies dysuria. [] Musculoskeletal: Denies back pain or joint pain. [] Integument: Denies rash. [] Neurologic: Denies headache, focal weakness or sensory changes. [] Endocrine: Denies polyuria or polydipsia. [] Lymphatic: Denies swollen glands. [] Psychiatric: Denies depression or anxiety. [] Heart Score: C/O Chest Pain: No Family History: Family History: Noncontributory Current Medications: Current Medications Medications (Trade) Dose Ordered Sig/[facility] Start Time Stop Time Status Last Admin Dose Admin Diphenhydramine HCl (Benadryl) 25 mg 1X ONCE 08/12/21 20:30 08/12/21 20:31 DC 08/12/21 20:28 25 MG Info (CONTRAST GIVEN -- Rx MONITORING) 1 each PRN DAILY PRN 08/12/21 21:15 08/14/21 21:14 Iohexol (Omnipaque 300 Mg/ml) 60 ml 1X ONCE 08/12/21 21:15 08/12/21 21:16 DC 08/12/21 21:19 60 ML Magnesium Sulfate 50 ml @ 25 mls/hr 1X ONCE 08/12/21 21:30 08/12/21 23:29 Potassium Chloride/Water 100 ml @ 100 mls/hr Q1H 08/12/21 21:30 08/12/21 23:29 08/12/21 21:49 100 MLS/HR Prochlorperazine Edisylate (Compazine) 10 mg 1X ONCE 08/12/21 20:30 08/12/21 20:31 DC 08/12/21 20:28 10 MG Ringer's Solution 1,000 ml @ 1,000 mls/hr Q1H 08/12/21 20:30 08/12/21 21:29 DC 08/12/21 20:28 1,000 MLS/HR Allergies: Allergies: Allergies Coded Allergies Type Severity Reaction Last Updated Verified No Known Drug Allergies 01/04/14 No Physical Exam: PE: Constitutional: Well developed, well nourished, no acute distress, non-toxic appearance. [] HENT: Normocephalic, atraumatic, bilateral external ears normal, oropharynx moist, no oral exudates, nose normal. [] Eyes: PERRLA, EOMI, conjunctiva normal, no discharge. [] Neck: Normal range of motion, no tenderness, supple, no stridor. [] Cardiovascular:Heart rate regular rhythm, no murmur [] Lungs & Thorax: Bilateral breath sounds clear to auscultation [] Abdomen: Bowel sounds normal, soft, no tenderness, no masses, no pulsatile masses. [] Skin: Warm, dry, no erythema, no rash. [] Back: No tenderness, no CVA tenderness. [] Extremities: No tenderness, no cyanosis, no clubbing, ROM intact, no edema. [] Neurologic: Alert and oriented X 3, normal motor function, normal sensory function, no focal deficits noted. [] Psychologic: Affect normal, judgement normal, mood normal. [] Current Patient Data: Labs: Laboratory Tests Test 08/12/21 19:36 08/12/21 20:17 Urine Collection Type Unknown Urine Color (Auto) Yellow Urine Turbidity Clear Urine pH (Auto) 6.5 (<5.0-8.0) Urine Specific [place] 1.010 (1.000-1.030) Urine Protein (Auto) Negative mg/dL (Negative) Urine Glucose (Auto)(UA) Negative mg/dL (Negative) Urine Ketones (Auto) Negative mg/dL (Negative) Urine Blood (Auto) Negative (Negative) Urine Nitrite Negative (Negative) Urine Bilirubin (Auto) Negative (Negative) Urine Urobilinogen (Auto) Normal mg/dL (Normal) Urine Leukocyte Esterase (Auto) Negative (Negative) Urine RBC 1-2 /HPF (0-2) Urine WBC 1-4 /HPF (0-4) Urine Bacteria 0 /HPF (0-FEW) Urine Mucus Slight /LPF White Blood Count 10.7 x10^3/uL (4.0-11.0) Red Blood Count 4.09 x10^6/uL (3.50-5.40) Hemoglobin 13.5 g/dL (12.0-15.5) Hematocrit 38.6 % (36.0-47.0) Mean Corpuscular Volume 95 fL (79-100) Mean Corpuscular Hemoglobin 33 pg (25-35) Mean Corpuscular Hemoglobin Concent 35 g/dL (31-37) Red Cell Distribution Width 13.7 % (11.5-14.5) Platelet Count 265 x10^3/uL (140-400) Neutrophils (%) (Auto) 70 % (31-73) Lymphocytes (%) (Auto) 20 % (24-48) L Monocytes (%) (Auto) 9 % (0-9) Eosinophils (%) (Auto) 1 % (0-3) Basophils (%) (Auto) 1 % (0-3) Neutrophils # (Auto) 7.5 x10^3/uL (1.8-7.7) Lymphocytes # (Auto) 2.1 x10^3/uL (1.0-4.8) Monocytes # (Auto) 0.9 x10^3/uL (0.0-1.1) Eosinophils # (Auto) 0.1 x10^3/uL (0.0-0.7) Basophils # (Auto) 0.1 x10^3/uL (0.0-0.2) Sodium Level 142 mmol/L (136-145) Potassium Level 2.9 mmol/L (3.5-5.1) *L Chloride Level 103 mmol/L (98-107) Carbon Dioxide Level 27 mmol/L (21-32) Anion Gap 12 (6-14) Blood Urea Nitrogen 10 mg/dL (7-20) Creatinine 1.2 mg/dL (0.6-1.0) H Estimated GFR (Cockcroft-Gault) 52.3 BUN/Creatinine Ratio 8 (6-20) Glucose Level 137 mg/dL (70-99) H Calcium Level 9.1 mg/dL (8.5-10.1) Total Bilirubin 0.4 mg/dL (0.2-1.0) Aspartate Amino Transferase (AST) 18 U/L (15-37) Alanine Aminotransferase (ALT) 10 U/L (14-59) L Alkaline Phosphatase 90 U/L (46-116) Troponin I High Sensitivity 15 ng/L (4-50) Total Protein 7.4 g/dL (6.4-8.2) Albumin 3.6 g/dL (3.4-5.0) Albumin/Globulin Ratio 0.9 (1.0-1.7) L Lipase 170 U/L (73-393) Laboratory Tests 08/12/21 20:17 Laboratory Tests 08/12/21 20:17 Vital Signs: Vital Signs Date Time Temp Pulse Resp B/P (MAP) Pulse Ox O2 Delivery O2 Flow Rate FiO2 08/12/21 19:40 99.5 107 22 135/86 (102) 100 Room Air 99.5 EKG: EKG: [] Radiology/Procedures: Radiology/Procedures: Exam: CT of abdomen and pelvis with contrast INDICATION: Abdominal pain, Back pain TECHNIQUE: Sequential axial images through the abdomen and pelvis obtained following the administration of 60 mL of Isovue-370 IV contrast. Sagittal and coronal reformatted images were reconstructed from the axial data and reviewed. Exposure: One or more of the following in the visualized dose reduction techniques were utilized for this examination: 1. Automated exposure control 2. Adjustment of the MA and/or KV according to patient size 3. Use of iterative of reconstructive technique Comparisons: 09/10/2017 FINDINGS: Heart size is normal. No pericardial effusion. Visualized lung bases are clear. No pleural effusion. Liver, spleen, pancreas, gallbladder and adrenals are unremarkable. No perinephric inflammation or hydronephrosis. No renal or ureteral calculi are identified. Bladder is partially distended and appears thin-walled. Uterus is absent. No abnormal adnexal mass. Postoperative changes noted at the descending colon. Remainder of the large and small bowel are unremarkable. Appendix is absent. No free intra-abdominal air or fluid. No obstruction. Abdominal aorta has a normal course and caliber. Abdominal vasculature is meléndez nt. No enlarged intra-abdominal lymph nodes are identified. No suspicious osseous lesions or acute fractures. IMPRESSION: No acute process identified in the abdomen or pelvis Electronically signed by: Chery Funes MD (08/12/2021 9:33 PM) [facility] Impression: Abdominal pain Headache Course & Med Decision Making: Course & Med Decision Making Patient remained hemodynamically stable in the emergency department. She was evaluated at the bedside with a physical exam. She was given Compazine and Benadryl for her headache and abdominal pain as well as her nausea. Basic labs obtained and are unremarkable. CT scan of the abdomen and pelvis showed no evidence of any acute abdominal abnormality. On reassessment both her headache and abdominal pain have improved. Patient was given an additional 5 mg of Lortab. She will be discharged home and will have her follow-up with her PCP. Brian Disclaimer: Brian Disclaimer: This electronic medical record was generated, in whole or in part, using a voice recognition dictation system. Departure Departure Impression: Primary Impression: Abdominal pain Additional Impression: Headache Disposition: HOME / SELF CARE / HOMELESS Condition: IMPROVED Referrals: GLENNY RIOS (PCP) Patient Instructions: Abdominal Pain, General Headache Without Cause MORAIMA OLIVERA MD August 12, 2021 22:35
[2021-08-12] MEDS ORDERED: HYDROcodone/APAP 5/325MG 1 TAB TABLET PO ONE (22:45)
[2021-08-12] MEDS ORDERED: POTASSIUM CHLORIDE 20 MEQ TABLET.ER. PO ONE (23:00)
[2021-08-12 23:55] VITALS: BP 159/71
== END 2021-08-13 00:15 | disposition home or self-care (01) ==
LOC: ER 19:00
DX: R10.84 Generalized abdominal pain (principal); R51.9 Headache, unspecified; E78.00 Pure hypercholesterolemia, unspecified; G89.29 Other chronic pain; I12.9 Hypertensive chronic kidney disease with stage 1 through stage 4 chronic kidney disease, or unspecified chronic kidney disease; N18.30 Chronic kidney disease, stage 3 unspecified; Z87.891 Personal history of nicotine dependence; Z90.89 Acquired absence of other organs; Z90.710 Acquired absence of both cervix and uterus; Z98.51 Tubal ligation status
CPT/HCPCS: 36415; 74177; 80053; 81001; 83690; 84484; 85025; 96361; 96365; 96375; 99285; J0780; J1200; J3480; J7120; Q9967